=== PATIENT | female | born 1955 | race Hispanic/Latino ===

== ENCOUNTER 2016-12-01 06:17 | Inpatient (IN) | payer OTHER ==
[2016-12-01] MEDS ORDERED: Albuterol-Ipratrop 3 mg / 0.5 (3 ml) UD ONE ×2 (06:21→08:29)
--- NOTE | 2016-12-01 06:46 | C.PDOC ---
History Of Present Illness <Carlos Chawla R - Last Filed: 12/01/16 06:53> <JosephImani - Last Filed: 12/01/16 09:02> Patient is a 61 year old female who presents to the ER with a complaint of shortness of breath for the past 2 days that has worsened today. Patient states she feels chest tightness when taking deep breaths. Denies any nausea, vomiting , or diarrhea. (ChawlaCarlos R) History Per: Patient History/Exam Limitations: no limitations Onset/Duration Of Symptoms: Days (2) Current Symptoms Are (Timing): Still Present Quality: Tightness (In chest when taking deep breaths) Associated Symptoms: denies: Fever, Chills <Carlos Chawla - Last Filed: 12/01/16 06:53> <Imani Ruiz - Last Filed: 12/01/16 09:02> Chief Complaint (Nursing): Shortness Of Breath Past Medical History Reviewed: Historical Data, Nursing Documentation, Vital Signs - Medical History PMH: Arthritis, COPD, Gastritis, HTN, Hypercholesterolemia, Hypothyroidism, Peripheral Edema Surgical History: Cholecystectomy, Endoscopy, Tonsillectomy Family History: States: Unknown Family Hx - Social History Hx Alcohol Use: No Hx Substance Use: No - Immunization History Hx Tetanus Toxoid Vaccination: No Hx Influenza Vaccination: No Hx Pneumococcal Vaccination: Yes <Carlos Chawla - Last Filed: 12/01/16 06:53> Review Of Systems Constitutional: Negative for: Fever, Chills Cardiovascular: Positive for: Other (Chest tightness with deep breaths) Respiratory: Positive for: Shortness of Breath Gastrointestinal: Negative for: Nausea, Vomiting <Carlos Chawla - Last Filed: 12/01/16 06:53> Physical Exam - Physical Exam Appears: Non-toxic, Other (Moderate dyspnea) Skin: Normal Color, Warm, Dry Head: Atraumatic, Normacephalic Oral Mucosa: Moist Chest: Symmetrical, No Tenderness Cardiovascular: Rhythm Regular, No Murmur Respiratory: Rales (Right lower lung area 1/3. Base of left side) Gastrointestinal/Abdominal: Soft, No Tenderness, Other (Obese) Extremity: Pedal Edema (Bilateral) Neurological/Psych: Oriented x3, Normal Speech, Normal Cognition <Carlos Chawla - Last Filed: 12/01/16 06:53> ED Course And Treatment ECG: Interpreted By Me, Viewed By Me ECG Rhythm: Sinus Rhythm ECG Interpretation: Normal, No Acute Changes Interpretation Of ECG: RSR, normal tracings. Rate From EC O2 Sat by Pulse Oximetry: 99 Pulse Ox Interpretation: Normal Progress Note: Blood work, EKG, CXR and vapotherm treatment ordered. <Carlos Chawla - Last Filed: 12/01/16 06:53> - Laboratory Results Result Diagrams: 12/01/16 07:00 12/01/16 07:00 <Imani Ruiz - Last Filed: 12/01/16 09:02> Disposition - Disposition Disposition Time: 07:00 - POA Present On Arrival: None <Carlos Chawla - Last Filed: 12/01/16 06:53> Discussed With : Lionel Hayden Counseled Patient/Family Regarding: Studies Performed, Diagnosis <Imani Ruiz - Last Filed: 12/01/16 09:02> - Disposition Disposition: HOSPITALIZED Condition: STABLE - Clinical Impression Clinical Impression: Dyspnea, CHF (congestive heart failure), Edema, Chest pain, Reactive airway disease - Scribe Statement The provider has reviewed the documentation as recorded by the Scribe <Carlos Chawla - Last Filed: 12/01/16 06:53> <Imani Ruiz - Last Filed: 12/01/16 09:02> - Scribe Statement Iain Austin All medical record entries made by the Scribe were at my direction and personally dictated by me. I have reviewed the chart and agree that the record accurately reflects my personal performance of the history, physical exam, medical decision making, and the department course for this patient. I have also personally directed, reviewed, and agree with the discharge instructions and disposition. (Carlos Chawla) Addendum <Carlos Chawla - Last Filed: 12/01/16 06:53> <Imani Ruiz - Last Filed: 12/01/16 09:02> Addendum: 12/01/16 08:56 patient with SOB, obesity endorsed to me by Dr. Chawla at the end of his shift. SOB X 1 week. Feels like she is gasping for air, her chest feels tight , her throat feels tight. Plan albuterol, SoluMedrol, Benadryl. Obs Possible reactive airway vs allergy. (Imani Ruiz) Decision To Admit <Carlos Chawla - Last Filed: 12/01/16 06:53> - Pt Status Changed To: Hospital Disposition Of: Observation - . Bed Request Type: Telemetry Admitting Physician: Lionel Hayden <Imani Ruiz - Last Filed: 12/01/16 09:02> - . Patient Diagnosis: Dyspnea, CHF (congestive heart failure), Edema, Chest pain, Reactive airway disease
--- NOTE | 2016-12-01 06:49 | C.PDOC ---
Chief Complaint (Nursing): Shortness Of Breath Past Medical History Vital Signs: Last Vital Signs Temp 99.1 F 12/01/16 06:27 Pulse 82 12/01/16 06:27 Resp 28 H 12/01/16 06:27 BP 191/87 H 12/01/16 06:27 Pulse Ox 99 12/01/16 06:27 - Medical History PMH: Arthritis, COPD, Gastritis, HTN, Hypercholesterolemia, Hypothyroidism, Peripheral Edema Denies: Chronic Kidney Disease Surgical History: Cholecystectomy, Endoscopy, Tonsillectomy - [facility] Procedures INSERTION OF INFUSION DEV INTO SUP VENA CAVA, PERC APPROACH (05/11/16) Family History: States: Unknown Family Hx - Social History Hx Alcohol Use: No Hx Substance Use: No - Immunization History Hx Tetanus Toxoid Vaccination: No Hx Influenza Vaccination: No Hx Pneumococcal Vaccination: Yes ED Course And Treatment O2 Sat by Pulse Oximetry: 99 Disposition - Disposition Disposition: HOSPITALIZED Condition: STABLE - POA Present On Arrival: None - Clinical Impression Clinical Impression: Dyspnea, CHF (congestive heart failure), Edema
[2016-12-01 07:05] LABS: BASO % 0.9 % (0.0-2.0); EOS # 0.2 K/uL (0.0-0.7); EOS % 4.4 % (0.0-4.0); HEMATOCRIT 33.9 % (34.0-47.0); LYMPH # 1.3 K/uL (1.0-4.3); LYMPH % 27.5 % (20.0-40.0); MEAN CELL VOLUME 88.8 fL (81.0-99.0); MEAN CORPUSCULAR HEMOGLOBIN 28.6 pg (27.0-31.0); MEAN CORPUSCULAR HGB CONC 32.2 g/dL (33.0-37.0); MEAN PLATELET VOLUME 7.9 fL (7.2-11.7); MONO # 0.6 K/uL (0.0-0.8); RED CELL DISTRIBUTION WIDTH 14.6 % (11.5-14.5); WHITE BLOOD COUNT 4.7 K/uL (4.8-10.8)
[2016-12-01 07:27] LABS: CHLORIDE 109 mmol/L (98-107); POTASSIUM 3.6 mmol/L (3.6-5.2); SODIUM 146 mmol/L (132-148)
[2016-12-01 07:30] LABS: ALB/GLOB RATIO 1.4 (1.0-2.1); ALKALINE PHOSPHATASE 59 U/L (38-126); ALT/SGPT 17 U/L (9-52); AST/SGOT 20 U/L (14-36); BLOOD UREA NITROGEN 11 mg/dL (7-17); CARBON DIOXIDE 23 mmol/L (22-30); GFR AFRICAN-AMERICAN > 60; GLUCOSE,RANDOM 104 mg/dL (65-105); TOTAL PROTEIN 6.5 g/dL (6.3-8.3)
[2016-12-01 07:31] LABS: CALCIUM 8.5 mg/dl (8.6-10.4)
[2016-12-01] MEDS ORDERED: Albuterol 0.083% Inhal Sol (2.5 mg/3 mL) UD IH STA (07:48)
[2016-12-01] MEDS ORDERED: DiphenhydrAMINE 50 mg/ml Inj IVP STA (07:48)
[2016-12-01 08:16] LABS: ABG ALLEN TEST POS; ABG MECHANICAL RATE 20; ARTERIAL BLOOD HGB O2 SAT 96.8 % (95.0-98.0); CARBOXYHEMOGLOBIN 0.8 % (0.5-1.5); DRAW SITE LRA; HHB 2.2 % (0.0-5.0); METHEMOGLOBIN 0.2 % (0.0-3.0)
--- NOTE | 2016-12-01 08:20 | RAD ---
PROCEDURE: CHEST RADIOGRAPH, 1 VIEW HISTORY: SOB COMPARISON: 05/12/2016 FINDINGS: LUNGS: Examination limited due to patient body habitus. No infiltrate. PLEURA: No pneumothorax or pleural fluid seen. CARDIOVASCULAR: Normal. OSSEOUS STRUCTURES: No significant abnormalities. VISUALIZED UPPER ABDOMEN: Normal. OTHER FINDINGS: None. IMPRESSION: No active disease.
[2016-12-01] MEDS ORDERED: DiphenhydrAMINE 50 mg/ml Inj ONE (08:29)
[2016-12-01] MEDS ORDERED: Albuterol 0.083% Inhal Sol (2.5 mg/3 mL) UD ONE (08:37)
[2016-12-01] MEDS ORDERED: Iodixanol 320 MG/ML 100 ML BOTTLE IV ONE (11:50)
--- NOTE | 2016-12-01 12:16 | RAD ---
HISTORY: sob COMPARISON: Comparison is made to the previous study dated 12/01/2016 TECHNIQUE: Chest PA and lateral FINDINGS: LUNGS: [id number] pulmonary vascular congestion. PLEURA: Blunting of the right costophrenic angle could be due to small pleural effusion. CARDIOVASCULAR: The cardiac silhouette is mildly enlarged. OSSEOUS STRUCTURES: No significant abnormalities. VISUALIZED UPPER ABDOMEN: Normal. OTHER FINDINGS: None. IMPRESSION: [id number] pulmonary vascular congestion. Suspicious for small right pleural effusion.
--- NOTE | 2016-12-01 13:00 | CT ---
PROCEDURE: CT Chest with contrast (Pulmonary Angiogram) HISTORY: shortness of breath, elevated d-dimer COMPARISON: None available. TECHNIQUE: Axial computed tomography images were obtained of the chest in the pulmonary arterial phase of enhancement. Coronal and sagittal reformatted images were created and reviewed. Intravenous contrast dose: 100 mL Visipaque 320 Radiation dose: Total exam DLP = 557.49 mGy-cm. This CT exam was performed using one or more of the following dose reduction techniques: Automated exposure control, adjustment of the mA and/or kV according to patient size, and/or use of iterative reconstruction technique. FINDINGS: PULMONARY ARTERIES: Examination is somewhat limited due to patient body habitus. There is suboptimal opacification of the pulmonary arteries for this examination. Nevertheless, there is no evidence of pulmonary arterial filling defect in the main, lobar and segmental branches. Subsegmental branches are suboptimally evaluated. AORTA: No acute findings. No thoracic aortic aneurysm. LUNGS: No infiltrate. No pulmonary mass. Very small right pleural effusion with minimal compressive atelectasis of right lower lobe. PLEURAL SPACES: Very small right pleural effusion. No left pleural effusion. No pneumothorax. HEART: Unremarkable. No cardiomegaly. No significant pericardial effusion. LYMPH NODES: There is mild mediastinal and bilateral hilar lymphadenopathy with few minimally enlarged nodes. This is nonspecific. BONES, CHEST WALL: Unremarkable. No fracture or destructive lesion OTHER FINDINGS: Unremarkable. IMPRESSION: No evidence of pulmonary embolism. Examination limited for evaluation of subsegmental pulmonary artery branches. No evidence of right ventricular strain. Very small right pleural effusion. Mild mediastinal and bilateral hilar lymphadenopathy, nonspecific.
[2016-12-01] MEDS: MethylPREDNISolone 40 mg Vial IVP SCH ×2 (14:03→21:52)
[2016-12-01] MEDS: Albuterol-Ipratrop 3 mg / 0.5 (3 ml) UD INH SCH ×2 (14:03→19:12)
[2016-12-01] MEDS: Hydrocortisone 2.5% Rectal Cream(30 gm) PR SCH (18:04)
--- NOTE | 2016-12-01 19:23 | CP.PCM.HP ---
<Rubi Mcghee - Last Filed: 12/01/16 19:08> History of Present Illness - History of Present Illness History of Present Illness: CC: "Shortness of Breath" HPI: Patient is a 61 year old female with medical history significant for COPD, hypertension, hyperlipidemia, hypothyroidism, gastritis, uterine cancer s/ p mass removal and osteoarthritis who presents to the emergency department for acute shortness of breath x 1 week. Patient reports she typically uses Ventolin inhaler every 4 hours as needed but recently inhaler has not been providing relief of symptoms. She admits to waking in the middle of the night with shortness of breath and wheezing. Patient states she ambulates and is active frequently despite increased pain to her right lower extremity and swelling. Patient reports pain and swelling to bilateral extremities has been present for many years. She denies history of DVT. Patient also denies cough, mucous production, and recent travel/surgeries. She notes her has been sick with a cold and notes subjective fever and diaphoresis two days ago. She is afebrile today. Patient denies chest pain and palpitations but describes chest tightness. She also reports episodes of diarrhea two days ago which has since resolved. Patient denies blood in stools. She also denies urinary symptoms including dysuria, increased frequency or urgency. PMD: Dr. Drake PMH: see above Allergies: tetracycline - anaphylaxis Surgeries: Cholecystectomy, Endoscopy, Tonsillectomy, Uterine mass removal Family History: Father - from CVA in 60s, Mother - hypertension Social: Former smoker, 35 year pack history. Denies alcohol and illicit drug use. Present on Admission - Present on Admission Any Indicators Present on Admission: No History of DVT/PE: No History of Uncontrolled Diabetes: No Urinary Catheter: No Decubitus Ulcer Present: No Review of Systems - Constitutional Constitutional: Fever. absent: Chills, Headache, Lethargy, Weight Loss, Weakness - EENT Eyes: absent: Blurred Vision, Change in Vision Ears: absent: Decreased Hearing, Disequilibrium, Dizziness Nose/Mouth/Throat: absent: Nasal Congestion, Nasal Discharge - Cardiovascular Cardiovascular: Dyspnea, Leg Edema. absent: Chest Pain, Chest Pain with Activity, Pain Radiating to Arm/Neck/Jaw, Lightheadedness, Palpitations, Pedal Edema, Syncope Additional comments: chest tightness - Respiratory Respiratory: Dyspnea, Wheezing. absent: Cough, Hemoptysis, Pain on Inspiration , Chest Congestion, Excessive Mucous Production - Gastrointestinal Gastrointestinal: Diarrhea, Heartburn. absent: Abdominal Pain, Constipation, Cramping, Hematochezia, Melena, Nausea, Vomiting - Genitourinary Genitourinary: absent: Difficulty Urinating, Dysuria, Hematuria, Urinary Frequency - Reproductive: Female Additional comments: history of uterine cancer - Musculoskeletal Musculoskeletal: Arthralgias, Joint Swelling. absent: Numbness, Tingling - Integumentary Integumentary: absent: New Lesions, Rash - Neurological Neurological: absent: Disequilibrium, Dizziness, Numbness, Headaches, Weakness - Psychiatric Psychiatric: absent: Anxiety, Depression Past Patient History - Infectious Disease Hx of Infectious Diseases: None - Past Medical History & Family History Past Medical History?: Yes - Past Social History Smoking Status: Former Smoker - CARDIAC Hx Hypercholesterolemia: Yes Hx Hypertension: Yes Hx Peripheral Edema: Yes - PULMONARY Hx Chronic Obstructive Pulmonary Disease (COPD): Yes - NEUROLOGICAL Hx Neurological Disorder: Yes HX Cerebrovascular Accident: Yes - HEENT Hx HEENT Problems: Yes (USES GLASSES FOR READING) - RENAL Hx Chronic Kidney Disease: No - ENDOCRINE/METABOLIC Hx Hypothyroidism: Yes - HEMATOLOGICAL/ONCOLOGICAL Hx Blood Disorders: Yes Hx Cancer: Yes (Uterine) - INTEGUMENTARY Hx Dermatological Problems: No - MUSCULOSKELETAL/RHEUMATOLOGICAL Hx Arthritis: Yes Hx Falls: Yes (No falls for over 1 year. uses walker) - GASTROINTESTINAL Hx Gastritis: Yes Hx Hemorrhoids: Yes - GENITOURINARY/GYNECOLOGICAL Hx Genitourinary Disorders: Yes Hx Uterine Cancer: Yes - PSYCHIATRIC Hx Substance Use: No - SURGICAL HISTORY Hx Cholecystectomy: Yes Hx Tonsillectomy: Yes - ANESTHESIA Hx Anesthesia: Yes Hx Anesthesia Reactions: No Hx Malignant Hyperthermia: No Meds Allergies/Adverse Reactions: Allergies Allergy/AdvReac Type Severity Reaction Status Date / Time tetracycline Allergy Severe SWELLING Verified 12/01/16 06:26 Physical Exam - Constitutional Appears: Non-toxic, No Acute Distress Additional comments: obese - Head Exam Head Exam: ATRAUMATIC, NORMAL INSPECTION, NORMOCEPHALIC - Eye Exam Eye Exam: EOMI, Normal appearance, PERRL - ENT Exam ENT Exam: Mucous Membranes Moist - Neck Exam Neck exam: Positive for: Normal Inspection. Negative for: Lymphadenopathy, Thyromegaly - Respiratory Exam Respiratory Exam: Wheezes. absent: Rales, Rhonchi - Cardiovascular Exam Cardiovascular Exam: +S1, +S2. absent: Bradycardia, Tachycardia - GI/Abdominal Exam GI & Abdominal Exam: Normal Bowel Sounds, Soft. absent: Distended, Firm - Extremities Exam Additional comments: right lower extremity swelling > than left lower extremity pain to palpation of medial aspect of right knee - Neurological Exam Neurological exam: Alert, CN II-XII Intact, Oriented x3 - Psychiatric Exam Psychiatric exam: Normal Affect, Normal Mood - Skin Skin Exam: Intact, Normal Color, Warm Results - Vital Signs Recent Vital Signs: Last Vital Signs Temp 97.9 F 12/01/16 15:16 Pulse 108 H 12/01/16 15:16 Resp 22 12/01/16 15:16 BP 186/77 H 12/01/16 18:03 Pulse Ox 94 L 12/01/16 15:16 - Labs Result Diagrams: 12/01/16 07:00 12/01/16 07:00 Assessment & Plan - Assessment and Plan (Free Text) Assessment: Shortness of Breath History of COPD CXR: Mild to moderate pulmonary vascular congestion. Suspicious for small right pleural effusion. No leukocytosis, afebrile D-dimer: 271 ABG obtained in ED: pCO2 35, pO2 104, HCO3 24.3, pH 7.43, mechanical rate 20 and FiO2 50% Duplex Scan of Lower Extremity Artery: Negative f/u Venous Duplex Scan of Lower Extremities CTA PE Study: No evidence of PE. Exam limited for evaluation of subsegmental pulmonary artery branches. No evidence of right ventricular strain. Very small right pleural effusion. Mild mediastinal and bilateral hilar lymphadenopathy, nonspecific. 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 Osteoarthritis Started on Celecoxib 100 mg po BID for pain Hypertension Patient continues on home medications: Metoprolol 25 mg po BID Hydralazine 25 mg po TID Aspirin 81 mg po daily Monitor Hyperlipidemia follow-up lipid panel Started on Rosuvastatin 2.5 mg po HS History of Gastritis Continue on home medication Pantoprazole 40 mg po daily History of Hypothyroidism f/u TSH and free T4 Continue on home medication Synthroid 150 mcg po daily Pancytopenia WBC 4.7, Hemoglobin 10.9, Hematocrit 33.9 f/u CBC Prophylaxis: SCD Lovenox 40 mg SC daily - Date & Time Date: 12/01/16 Time: 19:49 <JackelynLionel M - Last Filed: 12/02/16 08:40> Results - Vital Signs Recent Vital Signs: Last Vital Signs Temp 98.1 F 12/02/16 04:13 Pulse 86 12/02/16 04:13 Resp 20 12/02/16 04:13 BP 172/67 H 12/02/16 04:13 Pulse Ox 96 12/02/16 04:13 - Labs Result Diagrams: 12/02/16 06:50 12/02/16 06:50 Labs: Laboratory Results - last 24 hr 12/02/16 12/02/16 12/02/16 06:03 06:50 06:50 WBC 9.1 D RBC 3.70 L Hgb 10.7 L Hct 32.6 L MCV 88.0 MCH 28.9 MCHC 32.9 L RDW 14.3 Plt Count 227 MPV 8.2 Neut % (Auto) 89.4 H Lymph % (Auto) 8.3 L Holt % (Auto) 2.2 Eos % (Auto) 0.0 Baso % (Auto) 0.1 Neut # 8.1 H Lymph # 0.8 L Holt # 0.2 Eos # 0.0 Baso # 0.0 PT 11.6 INR 1.0 APTT 24 Sodium Potassium Chloride Carbon Dioxide Anion Gap BUN Creatinine Est GFR ( Amer) Est GFR (Non-Af Amer) POC Glucose (mg/dL) 195 H Random Glucose Calcium Magnesium Total Bilirubin AST ALT Alkaline Phosphatase Total Protein Albumin Globulin Albumin/Globulin Ratio Triglycerides Cholesterol LDL Cholesterol Direct HDL Cholesterol Free T4 12/02/16 12/02/16 06:50 06:50 WBC RBC Hgb Hct MCV MCH MCHC RDW Plt Count MPV Neut % (Auto) Lymph % (Auto) Holt % (Auto) Eos % (Auto) Baso % (Auto) Neut # Lymph # Holt # Eos # Baso # PT INR APTT Sodium 142 Potassium 3.3 L Chloride 107 Carbon Dioxide 21 L Anion Gap 17 BUN 15 Creatinine 0.9 Est GFR ( Amer) > 60 Est GFR (Non-Af Amer) > 60 POC Glucose (mg/dL) Random Glucose 164 H Calcium 8.8 Magnesium 2.1 Total Bilirubin 0.7 AST 14 D ALT 17 Alkaline Phosphatase 55 Total Protein 6.7 Albumin 3.9 Globulin 2.8 Albumin/Globulin Ratio 1.4 Triglycerides 54 D Cholesterol 129 LDL Cholesterol Direct 69 HDL Cholesterol 46 Free T4 1.63 Attending/Attestation - Attestation I have personally seen and examined this patient.: Yes I have fully participated in the care of the patient.: Yes I have reviewed all pertinent clinical information: Yes Notes (Text): 12/02/16 08:38 Patient was seen and examined at bedside with the resident the time of admission We will start the patient on treatment for COPD exacerbation Rule out pulmonary embolism and DVT I discussed the plan of care with the resident and I agree with the above history and physical and assessment/plan but the resident.
[2016-12-01] MEDS: POLYETHYLENE GLYCOL 3350 17 GM/Dose PACKET PO SCH (21:52)
[2016-12-01] MEDS: Rosuvastatin Calcium 2.5 mg Tab PO SCH (21:52)
[2016-12-02 00:45] VITALS: RESP 20
[2016-12-02] MEDS: Albuterol-Ipratrop 3 mg / 0.5 (3 ml) UD INH SCH ×4 (01:24→19:16)
[2016-12-02] MEDS: MethylPREDNISolone 40 mg Vial IVP SCH ×3 (05:11→21:11)
[2016-12-02] MEDS ORDERED: Levothyroxine 150 MCG TAB PO SCH (06:30)
[2016-12-02 07:26] LABS: BASO % 0.1 % (0.0-2.0); HEMATOCRIT 32.6 % (34.0-47.0); LYMPH # 0.8 K/uL (1.0-4.3); LYMPH % 8.3 % (20.0-40.0); MEAN CORPUSCULAR HEMOGLOBIN 28.9 pg (27.0-31.0); MEAN CORPUSCULAR HGB CONC 32.9 g/dL (33.0-37.0); MEAN PLATELET VOLUME 8.2 fL (7.2-11.7); MONO # 0.2 K/uL (0.0-0.8); MONO % 2.2 % (0.0-10.0); PLATELET COUNT 227 K/uL (130-400); RED CELL DISTRIBUTION WIDTH 14.3 % (11.5-14.5)
[2016-12-02 07:30] LABS: WHITE BLOOD COUNT 9.1 K/uL (4.8-10.8)
[2016-12-02 07:36] LABS: CHLORIDE 107 mmol/L (98-107)
[2016-12-02 07:37] LABS: POTASSIUM 3.3 mmol/L (3.6-5.2); SODIUM 142 mmol/L (132-148)
[2016-12-02 07:38] LABS: CHOLESTEROL 129 mg/dL (0-199)
[2016-12-02 07:39] LABS: ALB/GLOB RATIO 1.4 (1.0-2.1); ALKALINE PHOSPHATASE 55 U/L (38-126); ALT/SGPT 17 U/L (9-52); AST/SGOT 14 U/L (14-36); BILIRUBIN,TOTAL 0.7 mg/dL (0.2-1.3); BLOOD UREA NITROGEN 15 mg/dL (7-17); CALCIUM 8.8 mg/dl (8.6-10.4); CARBON DIOXIDE 21 mmol/L (22-30); GFR AFRICAN-AMERICAN > 60; GLUCOSE,RANDOM 164 mg/dL (65-105); TOTAL PROTEIN 6.7 g/dL (6.3-8.3)
[2016-12-02 07:40] LABS: MAGNESIUM 2.1 mg/dL (1.6-2.3)
[2016-12-02 08:58] LABS: THYROID STIMULATING HORMONE 0.02 mIU/L (0.46-4.68)
--- NOTE | 2016-12-02 09:09 | CP.PCM.PN ---
<Rubi Mcghee - Last Filed: 12/02/16 13:21> Subjective - Date & Time of Evaluation Date of Evaluation: 12/02/16 Time of Evaluation: 09:06 - Subjective Subjective: Patient seen and examined at bedside. Patient states she did not sleep well last night and was restless. She notes restlessness for one week. Patient reports breathing to be improved; however, she reports shortness of breath after ambulation. Patient denies further episodes of diarrhea. She reports pain to her bilaterally lower extremities and swelling, which has been present for some time. Objective - Vital Signs/Intake and Output Vital Signs (last 24 hours): Temp Pulse Resp BP Pulse Ox 97.5 F L 88 20 160/80 H 96 12/02/16 07:05 12/02/16 07:05 12/02/16 07:05 12/02/16 07:05 12/02/16 07:05 Intake and Output: 12/02/16 12/02/16 06:59 18:59 Intake Total 20 Balance 20 - Medications Medications: Current Medications Albuterol/Ipratropium (Duoneb 3 Mg/0.5 Mg (3 Ml) Ud) 3 ml INH RQ6 [facility] Last Admin: 12/02/16 08:22 Dose: Not Given Aspirin (Aspirin Chewable) 81 mg PO DAILY [facility] Last Admin: 12/01/16 10:43 Dose: 81 mg Budesonide (Pulmicort Respules) 0.25 mg INH RQ12 [facility] Celecoxib (Celebrex) 100 mg PO BID [facility] Last Admin: 12/01/16 18:03 Dose: 100 mg Enoxaparin Sodium (Lovenox) 40 mg SC DAILY [facility] Ergocalciferol (Drisdol 50,000 Intl Units Cap) 1 cap PO Q7D [facility] Hydralazine HCl (Apresoline) 25 mg PO TID [facility] Last Admin: 12/01/16 18:03 Dose: 25 mg Hydrocortisone (Anusol-Hc) 0 gm MI BID [facility] Last Admin: 12/01/16 18:04 Dose: 1 applic Levothyroxine Sodium (Synthroid) 150 mcg PO DAILY@0630 [facility] Last Admin: 12/02/16 06:13 Dose: 150 mcg Methylprednisolone (Solu-Medrol) 40 mg IVP Q8H [facility] Last Admin: 12/02/16 05:11 Dose: 40 mg Metoprolol Tartrate (Lopressor) 25 mg PO BID [facility] Last Admin: 12/01/16 18:03 Dose: 25 mg Montelukast Sodium (Singulair) 10 mg PO [facility] Last Admin: 12/01/16 21:52 Dose: 10 mg Pantoprazole Sodium (Protonix Ec Tab) 40 mg PO DAILY [facility] Polyethylene Glycol (Miralax) 17 gm PO [facility] Last Admin: 12/01/16 21:52 Dose: 17 gm Rosuvastatin Calcium (Crestor) 2.5 mg PO [facility] Last Admin: 12/01/16 21:52 Dose: 2.5 mg - Labs Labs: 12/02/16 06:50 12/02/16 06:50 PT 11.6 SECONDS (9.7-12.2) 12/02/16 06:50 INR 1.0 12/02/16 06:50 APTT 24 SECONDS (21-34) 12/02/16 06:50 - Constitutional Appears: Non-toxic, No Acute Distress - Head Exam Head Exam: ATRAUMATIC, NORMAL INSPECTION, NORMOCEPHALIC - Eye Exam Eye Exam: EOMI, PERRL - ENT Exam ENT Exam: Mucous Membranes Moist - Neck Exam Neck Exam: Normal Inspection - Respiratory Exam Respiratory Exam: Clear to Ausculation Bilateral, NORMAL BREATHING PATTERN. absent: Rales, Rhonchi, Wheezes - Cardiovascular Exam Cardiovascular Exam: +S1, +S2. absent: Tachycardia - GI/Abdominal Exam GI & Abdominal Exam: Soft, Normal Bowel Sounds. absent: Firm, Hernia - Extremities Exam Extremities Exam: Joint Swelling, Tenderness. absent: Pedal Edema Additional comments: bilateral lower extremity edema - Back Exam Back Exam: NORMAL INSPECTION - Neurological Exam Neurological Exam: Alert, Awake, Oriented x3 - Psychiatric Exam Psychiatric exam: Normal Affect, Normal Mood - Skin Skin Exam: Intact, Normal Color Assessment and Plan - Assessment and Plan (Free Text) Assessment: Shortness of Breath History of COPD CXR: Mild to moderate pulmonary vascular congestion. Suspicious for small right pleural effusion. No leukocytosis, afebrile D-dimer: 271 ABG obtained in ED: pCO2 35, pO2 104, HCO3 24.3, pH 7.43, mechanical rate 20 and FiO2 50% Duplex Scan of Lower Extremity Artery: Negative CTA PE Study: No evidence of PE. Exam limited for evaluation of subsegmental pulmonary artery branches. No evidence of right ventricular strain. Very small right pleural effusion. Mild mediastinal and bilateral hilar lymphadenopathy, nonspecific. 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 Will adjust/add medications if needed. Hyperlipidemia Continue Rosuvastatin 2.5 mg po HS Elevated Blood Glucose Glucose 164 Start RISS Accuchecks f/u hemoglobin a1c Hypokalemia Potassium 3.3 kdur 40 meq given stat f/u repeat potassium History of Gastritis Continue on home medication Pantoprazole 40 mg po daily History of Hypothyroidism TSH 0.02, free T4 1.63 Decrease Synthroid to 75 mcg from 150 mcg po daily Pancytopenia Resolved WBC 9.1, Low Hemoglobin 10.7, Hematocrit 32.6 Prophylaxis: SCD Lovenox 40 mg SC daily <Lionel Hayden - Last Filed: 12/02/16 15:58> Objective - Vital Signs/Intake and Output Vital Signs (last 24 hours): Temp Pulse Resp BP Pulse Ox 97.5 F L 88 20 194/78 H 96 12/02/16 07:05 12/02/16 07:05 12/02/16 07:05 12/02/16 10:23 12/02/16 07:05 Intake and Output: 12/02/16 12/02/16 06:59 18:59 Intake Total 20 Balance 20 - Medications Medications: Current Medications Albuterol/Ipratropium (Duoneb 3 Mg/0.5 Mg (3 Ml) Ud) 3 ml INH RQ6 [facility] Last Admin: 12/02/16 13:21 Dose: 3 ml Aspirin (Aspirin Chewable) 81 mg PO DAILY [facility] Last Admin: 12/02/16 10:37 Dose: 81 mg Budesonide (Pulmicort Respules) 0.25 mg INH RQ12 [facility] Last Admin: 12/02/16 13:21 Dose: Not Given Celecoxib (Celebrex) 100 mg PO BID [facility] Last Admin: 12/02/16 11:33 Dose: 100 mg Enoxaparin Sodium (Lovenox) 40 mg SC DAILY [facility] Last Admin: 12/02/16 10:29 Dose: 40 mg Ergocalciferol (Drisdol 50,000 Intl Units Cap) 1 cap PO Q7D [facility] Last Admin: 12/02/16 10:17 Dose: 1 cap Hydralazine HCl (Apresoline) 25 mg PO TID [facility] Last Admin: 12/02/16 15:20 Dose: 25 mg Hydrocortisone (Anusol-Hc) 0 gm MI BID [facility] Last Admin: 12/02/16 10:32 Dose: 1 applic Insulin Aspart (Novolog) 0 unit SC TIDAC [facility] PRN Reason: Protocol Last Admin: 12/02/16 12:22 Dose: 1 unit Levothyroxine Sodium (Synthroid) 75 mcg PO DAILY@0630 [facility] Losartan Potassium (Cozaar) 50 mg PO DAILY [facility] Last Admin: 12/02/16 11:32 Dose: 50 mg Methylprednisolone (Solu-Medrol) 40 mg IVP Q8H [facility] Last Admin: 12/02/16 15:00 Dose: 40 mg Metoprolol Tartrate (Lopressor) 25 mg PO BID [facility] Last Admin: 12/02/16 10:23 Dose: 25 mg Montelukast Sodium (Singulair) 10 mg PO HS [facility] Last Admin: 12/01/16 21:52 Dose: 10 mg Pantoprazole Sodium (Protonix Ec Tab) 40 mg PO DAILY [facility] Last Admin: 12/02/16 10:23 Dose: 40 mg Polyethylene Glycol (Miralax) 17 gm PO HS [facility] Last Admin: 12/01/16 21:52 Dose: 17 gm Rosuvastatin Calcium (Crestor) 2.5 mg PO HS [facility] Last Admin: 12/01/16 21:52 Dose: 2.5 mg - Labs Labs: 12/02/16 06:50 12/02/16 06:50 PT 11.6 SECONDS (9.7-12.2) 12/02/16 06:50 INR 1.0 12/02/16 06:50 APTT 24 SECONDS (21-34) 12/02/16 06:50 Attending/Attestation - Attestation I have personally seen and examined this patient.: Yes I have fully participated in the care of the patient.: Yes I have reviewed all pertinent clinical information, including history, physical exam and plan: Yes Notes (Text): 12/02/16 15:55 Patient was seen and examined at bedside. Still complains of shortness of breath. She also complains of for anxiety and irritability. Patient's blood pressure noted to be elevated. We will start the patient on Cozaar 50 mg daily We will continue home medication for blood pressure Patient's TSH is 0.02. We will lower the dose of for Synthroid. CT angiogram of the chest is negative for pulmonary embolism. Dopplers are negative for DVT. Continue current management I discussed the plan of care with the resident and agree with the above history and physical and assessment/plan by the resident.
[2016-12-02 09:37] LABS: NEUTROPHIL 91 % (50-75); TOTAL CELLS COUNTED 100
[2016-12-02] MEDS ORDERED: Ergocalciferol 50,000 Intl Units Cap PO SCH (10:00)
[2016-12-02] MEDS: Pantoprazole 40 mg EC Tab PO SCH (10:23)
[2016-12-02] MEDS: Enoxaparin 40 mg Syringe SC SCH (10:29)
[2016-12-02] MEDS: Hydrocortisone 2.5% Rectal Cream(30 gm) PR SCH ×2 (10:32→17:48)
[2016-12-02] MEDS ORDERED: Potassium Chloride 20 mEq ER Tab PO STA ×2 (10:39→15:03)
[2016-12-02] MEDS: (Novolog) Insulin Aspart, Recombinant 100 u/ml 10 ml vial SC SCH ×2 (12:22→17:49)
[2016-12-02] MEDS: Budesonide 0.25 mg/2 ml Inhal Susp UD INH SCH ×2 (13:21→19:15)
[2016-12-02] MEDS: Rosuvastatin Calcium 2.5 mg Tab PO SCH (21:11)
[2016-12-02] MEDS: POLYETHYLENE GLYCOL 3350 17 GM/Dose PACKET PO SCH (21:11)
[2016-12-03] MEDS: Albuterol-Ipratrop 3 mg / 0.5 (3 ml) UD INH SCH ×4 (02:46→19:25)
[2016-12-03] MEDS: MethylPREDNISolone 40 mg Vial IVP SCH ×3 (06:09→21:33)
[2016-12-03] MEDS: Levothyroxine 75 MCG TAB PO SCH (06:09)
[2016-12-03] MEDS: Budesonide 0.25 mg/2 ml Inhal Susp UD INH SCH ×2 (07:32→19:27)
[2016-12-03] MEDS: (Novolog) Insulin Aspart, Recombinant 100 u/ml 10 ml vial SC SCH ×3 (07:40→18:08)
--- NOTE | 2016-12-03 08:44 | CP.PCM.PN ---
<Rubi Mcghee - Last Filed: 12/03/16 14:57> Subjective - Date & Time of Evaluation Date of Evaluation: 12/03/16 Time of Evaluation: 08:43 - Subjective Subjective: Patient seen and examined at bedside. Patient reports she was able to sleep comfortably overnight. She continues to experience wheezing and congestion but notes improvement from admission. Patient has not had a bowel movement. She denies fever, chills, nausea, vomiting, abdominal pain, and dysuria. Patient reports her pain to bilateral upper and lower extremities and mobility is much improved on Celebrex. Objective - Vital Signs/Intake and Output Vital Signs (last 24 hours): Temp Pulse Resp BP Pulse Ox 97.6 F 63 20 156/82 H 97 12/03/16 08:37 12/03/16 08:37 12/03/16 08:37 12/03/16 08:37 12/03/16 08:37 - Medications Medications: Current Medications Albuterol/Ipratropium (Duoneb 3 Mg/0.5 Mg (3 Ml) Ud) 3 ml INH RQ6 [facility] Last Admin: 12/03/16 07:32 Dose: 3 ml Aspirin (Aspirin Chewable) 81 mg PO DAILY [facility] Last Admin: 12/02/16 10:37 Dose: 81 mg Budesonide (Pulmicort Respules) 0.25 mg INH RQ12 [facility] Last Admin: 12/03/16 07:32 Dose: 0.25 mg Celecoxib (Celebrex) 100 mg PO BID [facility] Last Admin: 12/02/16 17:46 Dose: 100 mg Enoxaparin Sodium (Lovenox) 40 mg SC DAILY [facility] Last Admin: 12/02/16 10:29 Dose: 40 mg Ergocalciferol (Drisdol 50,000 Intl Units Cap) 1 cap PO Q7D [facility] Last Admin: 12/02/16 10:17 Dose: 1 cap Hydralazine HCl (Apresoline) 25 mg PO TID [facility] Last Admin: 12/02/16 17:46 Dose: 25 mg Hydrocortisone (Anusol-Hc) 0 gm [place] BID [facility] Last Admin: 12/02/16 17:48 Dose: 1 applic Insulin Aspart (Novolog) 0 unit SC TIDAC [facility] PRN Reason: Protocol Last Admin: 12/03/16 07:40 Dose: Not Given Levothyroxine Sodium (Synthroid) 75 mcg PO DAILY@0630 [facility] Last Admin: 12/03/16 06:09 Dose: 75 mcg Losartan Potassium (Cozaar) 50 mg PO DAILY [facility] Last Admin: 12/02/16 11:32 Dose: 50 mg Methylprednisolone (Solu-Medrol) 40 mg IVP Q8H [facility] Last Admin: 12/03/16 06:09 Dose: 40 mg Metoprolol Tartrate (Lopressor) 25 mg PO BID [facility] Last Admin: 12/02/16 17:46 Dose: 25 mg Montelukast Sodium (Singulair) 10 mg PO [facility] Last Admin: 12/02/16 21:11 Dose: 10 mg Pantoprazole Sodium (Protonix Ec Tab) 40 mg PO DAILY [facility] Last Admin: 12/02/16 10:23 Dose: 40 mg Polyethylene Glycol (Miralax) 17 gm PO HS [facility] Last Admin: 12/02/16 21:11 Dose: 17 gm Rosuvastatin Calcium (Crestor) 2.5 mg PO [facility] Last Admin: 12/02/16 21:11 Dose: 2.5 mg - Labs Labs: 12/02/16 06:50 12/02/16 06:50 PT 11.6 SECONDS (9.7-12.2) 12/02/16 06:50 INR 1.0 12/02/16 06:50 APTT 24 SECONDS (21-34) 12/02/16 06:50 - Constitutional Appears: Non-toxic, No Acute Distress - Head Exam Head Exam: ATRAUMATIC, NORMAL INSPECTION, NORMOCEPHALIC - Eye Exam Eye Exam: EOMI, Normal appearance, PERRL - ENT Exam ENT Exam: Mucous Membranes Moist - Neck Exam Neck Exam: Normal Inspection - Respiratory Exam Respiratory Exam: Wheezes Additional comments: expiratory wheeze on auscultation - Cardiovascular Exam Cardiovascular Exam: +S1, +S2. absent: Tachycardia - GI/Abdominal Exam GI & Abdominal Exam: Soft, Normal Bowel Sounds. absent: Firm, Rigid - Extremities Exam Extremities Exam: Joint Swelling. absent: Tenderness - Back Exam Back Exam: NORMAL INSPECTION - Neurological Exam Neurological Exam: Alert, Awake, Oriented x3 - Psychiatric Exam Psychiatric exam: Normal Affect, Normal Mood - Skin Skin Exam: Intact, Normal Color Assessment and Plan - Assessment and Plan (Free Text) Assessment: Shortness of Breath History of COPD CXR: Mild to moderate pulmonary vascular congestion. Suspicious for small right pleural effusion. No leukocytosis, afebrile D-dimer: 271 ABG obtained in ED: pCO2 35, pO2 104, HCO3 24.3, pH 7.43, mechanical rate 20 and FiO2 50% Duplex Scan of Lower Extremity Artery: Negative CTA PE Study: No evidence of PE. Exam limited for evaluation of subsegmental pulmonary artery branches. No evidence of right ventricular strain. Very small right pleural effusion. Mild mediastinal and bilateral hilar lymphadenopathy, nonspecific. 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 Will adjust/add medications if needed. Hyperlipidemia Continue Rosuvastatin 2.5 mg po HS Elevated Blood Glucose Glucose 194 Start RISS - medium dose Accuchecks f/u hemoglobin a1c Hypokalemia Resolved Potassium 3.3 kdur 40 meq given stat f/u repeat potassium History of Gastritis Continue on home medication Pantoprazole 40 mg po daily History of Hypothyroidism TSH 0.02, free T4 1.63 Decrease Synthroid to 75 mcg from 150 mcg po daily Pancytopenia Resolved WBC 9.1, Low Hemoglobin 10.7, Hematocrit 32.6 Prophylaxis: SCD Lovenox 40 mg SC daily Dispo: Plan for discharge tomorrow Take off of nasal cannula tomorrow <Lionel Hayden - Last Filed: 12/03/16 16:52> Objective - Vital Signs/Intake and Output Vital Signs (last 24 hours): Temp Pulse Resp BP Pulse Ox 98.1 F 68 20 182/84 H 96 12/03/16 15:00 12/03/16 15:00 12/03/16 15:00 12/03/16 15:00 12/03/16 15:00 - Medications Medications: Current Medications Albuterol/Ipratropium (Duoneb 3 Mg/0.5 Mg (3 Ml) Ud) 3 ml INH RQ6 [facility] Last Admin: 12/03/16 13:03 Dose: 3 ml Aspirin (Aspirin Chewable) 81 mg PO DAILY [facility] Last Admin: 12/03/16 09:58 Dose: 81 mg Budesonide (Pulmicort Respules) 0.25 mg INH RQ12 [facility] Last Admin: 12/03/16 07:32 Dose: 0.25 mg Celecoxib (Celebrex) 100 mg PO BID [facility] Last Admin: 12/03/16 09:58 Dose: 100 mg Enoxaparin Sodium (Lovenox) 40 mg SC DAILY [facility] Last Admin: 12/03/16 09:59 Dose: 40 mg Ergocalciferol (Drisdol 50,000 Intl Units Cap) 1 cap PO Q7D [facility] Last Admin: 12/02/16 10:17 Dose: 1 cap Hydralazine HCl (Apresoline) 25 mg PO TID [facility] Last Admin: 12/03/16 13:30 Dose: 25 mg Hydrocortisone (Anusol-Hc) 0 gm [place] BID [facility] Last Admin: 12/03/16 10:00 Dose: 1 applic Insulin Aspart (Novolog) 0 unit SC TIDAC [facility] PRN Reason: Protocol Levothyroxine Sodium (Synthroid) 75 mcg PO DAILY@0630 [facility] Last Admin: 12/03/16 06:09 Dose: 75 mcg Losartan Potassium (Cozaar) 50 mg PO DAILY [facility] Last Admin: 12/03/16 09:58 Dose: 50 mg Methylprednisolone (Solu-Medrol) 40 mg IVP Q8H [facility] Last Admin: 12/03/16 13:29 Dose: 40 mg Metoprolol Tartrate (Lopressor) 25 mg PO BID [facility] Last Admin: 12/03/16 09:58 Dose: 25 mg Montelukast Sodium (Singulair) 10 mg PO HS [facility] Last Admin: 12/02/16 21:11 Dose: 10 mg Pantoprazole Sodium (Protonix Ec Tab) 40 mg PO DAILY [facility] Last Admin: 12/03/16 09:57 Dose: 40 mg Polyethylene Glycol (Miralax) 17 gm PO HS [facility] Last Admin: 12/02/16 21:11 Dose: 17 gm Promethazine HCl/Dextromethorphan (Phenergan Dm Syrup) 5 ml PO Q6H PRN PRN Reason: Cough Rosuvastatin Calcium (Crestor) 2.5 mg PO HS [facility] Last Admin: 12/02/16 21:11 Dose: 2.5 mg - Labs Labs: PT 11.6 SECONDS (9.7-12.2) 12/02/16 06:50 INR 1.0 12/02/16 06:50 APTT 24 SECONDS (21-34) 12/02/16 06:50 Attending/Attestation - Attestation I have personally seen and examined this patient.: Yes I have fully participated in the care of the patient.: Yes I have reviewed all pertinent clinical information, including history, physical exam and plan: Yes Notes (Text): 12/03/16 16:50 Patient was seen and examined at bedside Patient stated that she is feeling better and that breathing is improved However she still reports shortness of breath on ambulation We will continue IV steroids and nebulizing treatment and oxygen therapy Patient's chest CAT scan was negative for pulmonary embolism. Lower extremity Dopplers were negative for DVT Does of Synthroid was decreased to because of for very low TSH. Patient will need to repeat TSH in a few weeks time Discharge planning likely in the morning if the patient is able to ambulate without oxygen without desaturating Discussed the plan of care with the patient and her at bedside Discussed with the medical assistant float and I agree with the above history and physical and assessment/plan by the resident
[2016-12-03] MEDS: Pantoprazole 40 mg EC Tab PO SCH (09:57)
[2016-12-03] MEDS: Enoxaparin 40 mg Syringe SC SCH (09:59)
[2016-12-03] MEDS: Hydrocortisone 2.5% Rectal Cream(30 gm) PR SCH ×2 (10:00→18:12)
[2016-12-03 11:39] LABS: HEMATOCRIT 33.9 % (34.0-47.0); LYMPH # 0.7 K/uL (1.0-4.3); LYMPH % 5.2 % (20.0-40.0); MEAN CELL VOLUME 88.5 fL (81.0-99.0); MEAN CORPUSCULAR HGB CONC 32.8 g/dL (33.0-37.0); MEAN PLATELET VOLUME 8.6 fL (7.2-11.7); MONO # 0.4 K/uL (0.0-0.8); MONO % 2.9 % (0.0-10.0); PLATELET COUNT 256 K/uL (130-400); RED CELL DISTRIBUTION WIDTH 14.3 % (11.5-14.5); WHITE BLOOD COUNT 13.3 K/uL (4.8-10.8)
[2016-12-03 11:56] LABS: CHLORIDE 107 mmol/L (98-107)
[2016-12-03 11:57] LABS: POTASSIUM 4.1 mmol/L (3.6-5.2); SODIUM 142 mmol/L (132-148)
[2016-12-03 11:59] LABS: ALB/GLOB RATIO 1.3 (1.0-2.1); ALKALINE PHOSPHATASE 53 U/L (38-126); AST/SGOT 19 U/L (14-36); BILIRUBIN,TOTAL 0.7 mg/dL (0.2-1.3); BLOOD UREA NITROGEN 26 mg/dL (7-17); CARBON DIOXIDE 21 mmol/L (22-30); GFR AFRICAN-AMERICAN > 60; TOTAL PROTEIN 7.1 g/dL (6.3-8.3)
[2016-12-03 12:00] LABS: ALT/SGPT 22 U/L (9-52); GLUCOSE,RANDOM 194 mg/dL (65-105); MAGNESIUM 2.3 mg/dL (1.6-2.3)
[2016-12-03 12:21] LABS: NEUTROPHIL 89 % (50-75); TOTAL CELLS COUNTED 100
[2016-12-03 12:22] LABS: LARGE PLATELETS PRESENT
[2016-12-03] MEDS ORDERED: Promethazine DM 6.25 mg-15 mg/5 ml Syrup PO PRN (15:23)
[2016-12-03] MEDS: POLYETHYLENE GLYCOL 3350 17 GM/Dose PACKET PO SCH (21:30)
[2016-12-03] MEDS: Rosuvastatin Calcium 2.5 mg Tab PO SCH (21:30)
[2016-12-04 01:23] VITALS: TEMP 97.4; O2SAT 94
[2016-12-04] MEDS: Albuterol-Ipratrop 3 mg / 0.5 (3 ml) UD INH SCH ×3 (03:06→13:32)
[2016-12-04] MEDS: Levothyroxine 75 MCG TAB PO SCH (06:08)
[2016-12-04] MEDS: MethylPREDNISolone 40 mg Vial IVP SCH (06:09)
[2016-12-04 06:35] LABS: CHLORIDE 104 mmol/L (98-107); POTASSIUM 4.3 mmol/L (3.6-5.2); SODIUM 140 mmol/L (132-148)
[2016-12-04 06:38] LABS: ALB/GLOB RATIO 1.4 (1.0-2.1); CARBON DIOXIDE 25 mmol/L (22-30); GFR AFRICAN-AMERICAN > 60; GLUCOSE,RANDOM 151 mg/dL (65-105); TOTAL PROTEIN 6.5 g/dL (6.3-8.3)
[2016-12-04 06:40] LABS: ALKALINE PHOSPHATASE 46 U/L (38-126); ALT/SGPT 28 U/L (9-52); AST/SGOT 18 U/L (14-36); BILIRUBIN,TOTAL 0.6 mg/dL (0.2-1.3); BLOOD UREA NITROGEN 22 mg/dL (7-17); CALCIUM 8.4 mg/dl (8.6-10.4); MAGNESIUM 2.3 mg/dL (1.6-2.3)
[2016-12-04 06:44] LABS: BASO % 0.1 % (0.0-2.0); HEMATOCRIT 32.4 % (34.0-47.0); LYMPH # 0.8 K/uL (1.0-4.3); LYMPH % 7.8 % (20.0-40.0); MEAN CELL VOLUME 88.4 fL (81.0-99.0); MEAN CORPUSCULAR HGB CONC 32.9 g/dL (33.0-37.0); MEAN PLATELET VOLUME 8.3 fL (7.2-11.7); MONO # 0.4 K/uL (0.0-0.8); MONO % 4.2 % (0.0-10.0); PLATELET COUNT 233 K/uL (130-400); RED CELL DISTRIBUTION WIDTH 14.6 % (11.5-14.5); WHITE BLOOD COUNT 9.8 K/uL (4.8-10.8)
[2016-12-04] MEDS: Budesonide 0.25 mg/2 ml Inhal Susp UD INH SCH (07:57)
[2016-12-04] MEDS: (Novolog) Insulin Aspart, Recombinant 100 u/ml 10 ml vial SC SCH ×2 (08:18→12:28)
[2016-12-04 09:16] VITALS: PULSE 59
[2016-12-04 09:26] LABS: NEUTROPHIL 89 % (50-75); TOTAL CELLS COUNTED 100
[2016-12-04] MEDS: Pantoprazole 40 mg EC Tab PO SCH (09:56)
[2016-12-04] MEDS: Enoxaparin 40 mg Syringe SC SCH (09:57)
[2016-12-04] MEDS: Hydrocortisone 2.5% Rectal Cream(30 gm) PR SCH (09:59)
[2016-12-04 10:07] VITALS: BP 176/73
--- NOTE | 2016-12-04 17:47 | VASCLAB ---
PROCEDURE: Lower Extremity Venous Duplex Exam. HISTORY: Right leg pain, shortness of breath, wheezing PRIORS: None. TECHNIQUE: Bilateral common femoral, femoral, popliteal and posterior tibial, peroneal and great saphenous veins were evaluated. Flow was assessed with color Doppler, compressibility, assessment of phasic flow and augmentation response. Report prepared by LISA Urena FINDINGS: RIGHT: 1. Common Femoral Vein: 1.1. Compressibility - Fully compressible: Thrombus - None : Flow - Phasic: Augmentation -Normal: Reflux - None. 2. Femoral Vein: 2.1. Compressibility - Fully compressible: Thrombus - None : Flow - Phasic: Augmentation -Normal: Reflux - None. 3. Popliteal Vein: 3.1. Compressibility - Fully compressible: Thrombus - None : Flow - Phasic: Augmentation -Normal: Reflux - None. 4. Posterior Tibial Vein: 4.1. Compressibility - Fully compressible: Thrombus - None: Flow - Phasic: Augmentation -Normal: Reflux - None. 5. Peroneal Vein: 5.1. Compressibility - Fully compressible: Thrombus - None: Flow - Phasic: Augmentation -Normal: Reflux - None. 6. Great Saphenous Vein: 6.1. Compressibility - Fully compressible: Thrombus - None: Flow - Phasic: Augmentation - Normal: Reflux - None. LEFT: 1. Common Femoral Vein: 1.1. Compressibility - Fully compressible: Thrombus - None: Flow - Phasic: Augmentation -Normal: Reflux - None. 2. Femoral Vein: 2.1. Compressibility - Fully compressible: Thrombus - None: Flow - Phasic: Augmentation -Normal: Reflux - None. 3. Popliteal Vein: 3.1. Compressibility - Fully compressible: Thrombus - None : Flow - Phasic: Augmentation -Normal: Reflux - None. 4. Posterior Tibial Vein: 4.1. Compressibility - Fully compressible: Thrombus - None: Flow - Phasic: Augmentation -Normal: Reflux - None. 5. Peroneal Vein: 5.1. Compressibility - Fully compressible: Thrombus - None: Flow - Phasic: Augmentation -Normal: Reflux - None. 6. Great Saphenous Vein: 6.1. Compressibility - Fully compressible: Thrombus - None: Flow - Phasic: Augmentation - Normal: Reflux - None. OTHER FINDINGS: Right: None significant. Left: None significant. IMPRESSION: Right: No evidence of deep or superficial vein thrombosis of the right lower extremity. Normal valve function noted of the right side. Left: No evidence of deep or superficial vein thrombosis of the left lower extremity. Normal valve function noted of the left side.
--- NOTE | 2016-12-04 18:59 | CP.PCM.DIS ---
<LitzyRubi - Last Filed: 12/04/16 21:39> Provider - Provider Date of Admission: 12/03/16 12:32 Attending physician: Lionel Hayden MD Primary care physician: Dr. Drake Time Spent in preparation of Discharge (in minutes): 31 Diagnosis - Discharge Diagnosis (1) COPD exacerbation Status: Acute (2) Hypertension Status: Acute (3) Diabetes mellitus Status: Acute (4) Osteoarthritis Status: Acute (5) Hyperlipidemia Status: Acute (6) Gastritis Status: Acute (7) Hypothyroid Status: Acute Hospital Course - Lab Results Lab Results: Most Recent Lab Values WBC 9.8 K/uL (4.8-10.8) 12/04/16 06:22 RBC 3.67 Mil/uL (3.80-5.20) L 12/04/16 06:22 Hgb 10.7 g/dL (11.0-16.0) L 12/04/16 06:22 Hct 32.4 % (34.0-47.0) L 12/04/16 06:22 MCV 88.4 fL (81.0-99.0) 12/04/16 06:22 MCH 29.0 pg (27.0-31.0) 12/04/16 06:22 MCHC 32.9 g/dL (33.0-37.0) L 12/04/16 06:22 RDW 14.6 % (11.5-14.5) H 12/04/16 06:22 Plt Count 233 K/uL (130-400) 12/04/16 06:22 MPV 8.3 fL (7.2-11.7) 12/04/16 06:22 Neut % (Auto) 87.9 % (50.0-75.0) H 12/04/16 06:22 Lymph % (Auto) 7.8 % (20.0-40.0) L 12/04/16 06:22 [place] % (Auto) 4.2 % (0.0-10.0) 12/04/16 06:22 Eos % (Auto) 0.0 % (0.0-4.0) 12/04/16 06:22 Baso % (Auto) 0.1 % (0.0-2.0) 12/04/16 06:22 Neut # 8.6 K/uL (1.8-7.0) H 12/04/16 06:22 Lymph # 0.8 K/uL (1.0-4.3) L 12/04/16 06:22 [place] # 0.4 K/uL (0.0-0.8) 12/04/16 06:22 Eos # 0.0 K/uL (0.0-0.7) 12/04/16 06:22 Baso # 0.0 K/uL (0.0-0.2) 12/04/16 06:22 Neutrophils % (Manual) 89 % (50-75) H 12/04/16 06:22 Lymphocytes % (Manual) 6 % (20-40) L 12/04/16 06:22 Monocytes % (Manual) 5 % (0-10) 12/04/16 06:22 Platelet Estimate Normal (NORMAL) 12/04/16 06:22 Large Platelets Present 12/03/16 11:29 Polychromasia Slight 12/04/16 06:22 Hypochromasia (manual) Slight 12/04/16 06:22 Poikilocytosis (manual Slight 12/04/16 06:22 Anisocytosis (manual) Slight 12/04/16 06:22 PT 11.6 SECONDS (9.7-12.2) 12/02/16 06:50 INR 1.0 12/02/16 06:50 APTT 24 SECONDS (21-34) 12/02/16 06:50 D-Dimer, Quantitative 271 ng/mlDDU (0-243) H 12/01/16 07:00 Puncture Site Lra 12/01/16 08:11 pCO2 35 mm/Hg (35-45) 12/01/16 08:11 pO2 104 mm/Hg (80-100) H 12/01/16 08:11 HCO3 24.3 mmol/L (21-28) 12/01/16 08:11 ABG pH 7.43 (7.35-7.45) 12/01/16 08:11 ABG Total CO2 24.3 mmol/L (22-28) 12/01/16 08:11 ABG O2 Saturation 97.8 % (95-98) 12/01/16 08:11 ABG Base Excess -0.8 mmol/L (-2.0-3.0) 12/01/16 08:11 ABG Hemoglobin 10.1 g/dL (11.7-17.4) L 12/01/16 08:11 ABG Carboxyhemoglobin 0.8 % (0.5-1.5) 12/01/16 08:11 POC ABG HHb (Measured) 2.2 % (0.0-5.0) 12/01/16 08:11 ABG Methemoglobin 0.2 % (0.0-3.0) 12/01/16 08:11 Jose Test Pos 12/01/16 08:11 A-a O2 Difference 209.0 mm/Hg 12/01/16 08:11 Respiratory Index 2.0 12/01/16 08:11 Hgb O2 Saturation 96.8 % (95.0-98.0) 12/01/16 08:11 Mechanical Rate 20 12/01/16 08:11 FiO2 50.0 % 12/01/16 08:11 Sodium 140 mmol/L (132-148) 12/04/16 06:22 Potassium 4.3 mmol/L (3.6-5.2) 12/04/16 06:22 Chloride 104 mmol/L (98-107) 12/04/16 06:22 Carbon Dioxide 25 mmol/L (22-30) 12/04/16 06:22 Anion Gap 16 (10-20) 12/04/16 06:22 BUN 22 mg/dL (7-17) H 12/04/16 06:22 Creatinine 0.9 MG/DL (0.7-1.2) 12/04/16 06:22 Est GFR ( Amer) > 60 12/04/16 06:22 Est GFR (Non-Af Amer) > 60 12/04/16 06:22 POC Glucose (mg/dL) 204 mg/dL (65-110) H 12/04/16 11:38 Random Glucose 151 mg/dL (65-105) H 12/04/16 06:22 Hemoglobin A1c 6.0 % (4.2-6.5) 12/03/16 12:59 Calcium 8.4 mg/dl (8.6-10.4) L 12/04/16 06:22 Magnesium 2.3 mg/dL (1.6-2.3) 12/04/16 06:22 Total Bilirubin 0.6 mg/dL (0.2-1.3) 12/04/16 06:22 AST 18 U/L (14-36) 12/04/16 06:22 ALT 28 U/L (9-52) 12/04/16 06:22 Alkaline Phosphatase 46 U/L (38-126) 12/04/16 06:22 Troponin I < 0.0120 ng/mL (0.00-0.120) 12/01/16 07:00 NT-Pro-B Natriuret Pep 481 pg/mL (0-900) 12/01/16 07:00 Total Protein 6.5 g/dL (6.3-8.3) 12/04/16 06:22 Albumin 3.8 g/dL (3.5-5.0) 12/04/16 06:22 Globulin 2.8 gm/dL (2.2-3.9) 12/04/16 06:22 Albumin/Globulin Ratio 1.4 (1.0-2.1) 12/04/16 06:22 Triglycerides 54 mg/dL (0-149) D 12/02/16 06:50 Cholesterol 129 mg/dL (0-199) 12/02/16 06:50 LDL Cholesterol Direct 69 mg/dL (0-129) 12/02/16 06:50 HDL Cholesterol 46 mg/dL (30-70) 12/02/16 06:50 Free T4 1.63 ng/dL (0.78-2.19) 12/02/16 06:50 TSH 3rd Generation 0.02 mIU/L (0.46-4.68) L 12/02/16 06:50 - Hospital Course Hospital Course: On admission: CC: "Shortness of Breath" HPI: Patient is a 61 year old female with medical history significant for COPD, hypertension, hyperlipidemia, hypothyroidism, gastritis, uterine cancer s/ p mass removal and osteoarthritis who presents to the emergency department for acute shortness of breath x 1 week. Patient reports she typically uses Ventolin inhaler every 4 hours as needed but recently inhaler has not been providing relief of symptoms. She admits to waking in the middle of the night with shortness of breath and wheezing. Patient states she ambulates and is active frequently despite increased pain to her right lower extremity and swelling. Patient reports pain and swelling to bilateral extremities has been present for many years. She denies history of DVT. Patient also denies cough, mucous production, and recent travel/surgeries. She notes her has been sick with a cold and notes subjective fever and diaphoresis two days ago. She is afebrile today. Patient denies chest pain and palpitations but describes chest tightness. She also reports episodes of diarrhea two days ago which has since resolved. Patient denies blood in stools. She also denies urinary symptoms including dysuria, increased frequency or urgency. PMD: Dr. Drake PMH: see above Allergies: tetracycline - anaphylaxis Surgeries: Cholecystectomy, Endoscopy, Tonsillectomy, Uterine mass removal Family History: Father - from CVA in 60s, Mother - hypertension Social: Former smoker, 35 year pack history. Denies alcohol and illicit drug use. On hospital course:During hospital course, the following procedures/imaging were done: Chest x ray (12/01/16): No active disease EKG (12/01/16): Normal sinus rhythm Chest x ray (12/01/16): Mild to moderate pulmonary vascular congestion. Suspicious for small right pleural effusion. CT Chest (12/01/16): No evidence of pulmonary embolism. Examination limited for evaluation of subsegmental pulmonary artery branches. No evidence of right ventricular strain. Very small right pleural effusion. Mild mediastinal and bilateral hilar lymphadenopathy, nonspecific. Duplex scan (12/01/16): No abnormal findings of examined veins right and left lower extremities. Echocardiogram (12/02/16) Shortness of breath Patient has a history of COPD, and x-ray showed mild to moderate pulmonary vascular congestion, suspicious for small right pleural effusion. Upon admission , patient was afebrile and did not have leukocytosis, however her d-dimer was slightly elevated at 271. ABG was obtained in ED and showed pCO2 35, pO2 104, HCO3 24.3, pH 7.43. Both doppler and CTA PE studies were negative for PE. Patient was started on nasal cannula oxygen, Duoneb INH RQ6H, Pulmicort 0.25 mg INH BID, Singulair 10mg PO HS, and SoluMedrol 40mg IVP Q8H. Patient's troponins were negative and EKG was normal sinus rhythm. After 1 day, patient's breathing improved however she reported shortness of breath upon ambulation and bilateral lower extremity pain, which had been present for some time. By day 3, patient still had minor wheezing and congestion but felt significantly improved compared to admission. Osteoarthritis Patient was started on Celecoxib 100mg po BID for pain.Patient's extremity pain improved by day 3. Hypertension Patient was continued on home medications metoprolol 25mg po BID, hydralazine 25mg po TID, and aspirin 81mg po daily. Blood pressure was monitored throughout hospital course: Hyperlipidemia Lipid panel was obtained and total cholesterol was 129, LDL 69, HDL 46, and triglycerides 129. Patient was started on rosuvastatin 2.5mg po HS. Elevated blood glucose On day 2, glucose readings were elevated in the 160s. Patient was started on sliding scale insulin and was monitored with accuchecks. Hemoglobin a1c was 6.0. Hypokalemia On day 2, potassium was low at 3.3. Kdur 40 mEq was given stat. Next day's potassium was in range at 4.1. History of gastritis Patient was continued on home medication pantoprazole 40mg po daily History of hypothyroidism On admission, patient had TSH 0.02 and free T4 1.63. Patient was continued on home medication Synthroid but dose was decreased to 75mcg from 150mcg daily. Pancytopenia On admission, WBC 4.7, Hemoglobin 10.9, Hematocrit 33.9. CBC was monitored and pancytopenia was resolved on day 2 with WBC increasing to 9.1. Prophylactic measures SCD and lovenox 40mg SC daily Please note this is a summary of hospital course. For full details please see patient chart. Discharge Instructions: Patient medically stable for discharge. Patient instructed to take the following medications as prescribed: Aspirin 81 mg tab po daily Pulmicort Respules 0.25 mg inhaled twice daily Singulair 10 mg tab by mouth at night Prednisone taper - 10 mg tab by mouth twice daily for 5 days and 10 mg tab by mouth daily for 5 days Ventolin HFA 90 mcg/actuation 2 puff inhaled every four hours as needed Metformin 500 mg by mouth daily Celebrex 100 mg by mouth twice daily Synthroid 75 mcg tab by mouth each morning Losartan 50 mg tab by mouth daily Hydralazine 25 mg tab by mouth three times daily Metoprolol 12.5 mg tab by mouth twice daily Simvastatin 10 mg tab by mouth daily Patient instructed to follow-up in the [facility] with her primary care physician within one week of discharge. Patient instructed she will need to have her thyroid levels checked as she was started on lower dose of Synthroid. Patient instructed to return to the emergency room if symptoms recur. Patient given detailed instructions at bedside. Patient understands and agrees. - Date & Time of H&P Date of H&P: 12/01/16 Time of H&P: 19:08 Discharge Exam - Head Exam Head Exam: ATRAUMATIC, NORMAL INSPECTION, NORMOCEPHALIC - Eye Exam Eye Exam: EOMI, Normal appearance - ENT Exam ENT Exam: Mucous Membranes Moist - Neck Exam Neck exam: Full Rom, Normal Inspection - Respiratory Exam Respiratory Exam: Clear to PA & Lateral, NORMAL BREATHING PATTERN, UNREMARKABLE - Cardiovascular Exam Cardiovascular Exam: +S1, +S2. absent: Tachycardia - GI/Abdominal Exam GI & Abdominal Exam: Normal Bowel Sounds, Unremarkable - Extremities Exam Extremities exam: full ROM, joint swelling - Back Exam Back exam: absent: CVA tenderness (L), CVA tenderness (R) - Neurological Exam Neurological exam: Alert, Normal Gait, Oriented x3 - Psychiatric Exam Psychiatric exam: Normal Affect, Normal Mood - Skin Skin Exam: Dry, Normal Color, Warm Discharge Plan - Discharge Medications Prescriptions: Albuterol HFA [Ventolin HFA 90 mcg/actuation (8 g)] 2 puff INH Q4 PRN #1 inhaler PRN Reason: Shortness Of Breath Aspirin [Aspirin Chewable] 81 mg PO DAILY #30 Budesonide [Pulmicort Respules] 0.25 mg INH RQ12 #1 inhaler Celecoxib [celeBREX] 100 mg PO BID #60 cap hydrALAZINE [Apresoline] 25 mg PO TID #90 tab Levothyroxine [Synthroid] 75 mcg PO DAILY@0630 #30 tab Losartan [Cozaar] 50 mg PO DAILY #30 tab Metformin HCl [Glucophage] 500 mg PO DAILY #30 tablet Metoprolol Tartrate [Lopressor] 25 mg PO BID #60 Montelukast [Singulair] 10 mg PO HS #30 tab predniSONE [Prednisone] 10 mg PO BID #6 tab predniSONE [Prednisone] 10 mg PO DAILY #3 tab Simvastatin 1 tab PO DAILY #30 - Follow Up Plan Condition: STABLE Disposition: HOME/ ROUTINE Instructions: Metoprolol (By mouth), Levothyroxine (By mouth), Albuterol (By breathing), Prednisone (By mouth), Aspirin (By mouth), Hydralazine (By mouth), Simvastatin (By mouth), Losartan (By mouth), Budesonide (By breathing), Montelukast (By mouth), Celecoxib (By mouth), Heart Failure (DC), Heart Healthy Diet (DC), COPD (Chronic Obstructive Pulmonary Disease) (DC), Hyperlipidemia (DC ) Additional Instructions: Patient medically stable for discharge. Patient instructed to take the following medications as prescribed: Aspirin 81 mg tab po daily Pulmicort Respules 0.25 mg inhaled twice daily Singulair 10 mg tab by mouth at night Prednisone taper - 10 mg tab by mouth twice daily for 3 days (6 tabs) and 10 mg tab by mouth daily for 3 days (3 tabs) Ventolin HFA 90 mcg/actuation 2 puff inhaled every four hours as needed Celebrex 100 mg by mouth twice daily Synthroid 75 mcg tab by mouth each morning Losartan 50 mg tab by mouth daily Hydralazine 25 mg tab by mouth three times daily Metoprolol 12.5 mg tab by mouth twice daily Simvastatin 10 mg tab by mouth daily Vitamin D3 2000 unit capsule by mouth daily Anusol-Hc 30 gm tube apply to rectum twice daily Pantoprazole 40 mg tab by mouth daily Polyethylene Glycol 119 gm powder 17 g by mouth twice daily Patient instructed to follow-up in the [facility] with her primary care physician within one week of discharge. Patient instructed she will need to have her thyroid levels checked as she was started on lower dose of Synthroid. Patient instructed to return to the emergency room if symptoms recur. Patient given detailed instructions at bedside. Patient understands and agrees. Referrals: Magy Drake MD [Staff Provider] - <Anjel Robb H - Last Filed: 12/05/16 17:15> Provider - Provider Date of Admission: 12/03/16 12:32 Attending physician: Lionel Hayden MD Hospital Course - Lab Results Lab Results: Most Recent Lab Values WBC 9.8 K/uL (4.8-10.8) 12/04/16 06:22 RBC 3.67 Mil/uL (3.80-5.20) L 12/04/16 06:22 Hgb 10.7 g/dL (11.0-16.0) L 12/04/16 06:22 Hct 32.4 % (34.0-47.0) L 12/04/16 06:22 MCV 88.4 fL (81.0-99.0) 12/04/16 06:22 MCH 29.0 pg (27.0-31.0) 12/04/16 06:22 MCHC 32.9 g/dL (33.0-37.0) L 12/04/16 06:22 RDW 14.6 % (11.5-14.5) H 12/04/16 06:22 Plt Count 233 K/uL (130-400) 12/04/16 06:22 MPV 8.3 fL (7.2-11.7) 12/04/16 06:22 Neut % (Auto) 87.9 % (50.0-75.0) H 12/04/16 06:22 Lymph % (Auto) 7.8 % (20.0-40.0) L 12/04/16 06:22 [place] % (Auto) 4.2 % (0.0-10.0) 12/04/16 06:22 Eos % (Auto) 0.0 % (0.0-4.0) 12/04/16 06:22 Baso % (Auto) 0.1 % (0.0-2.0) 12/04/16 06:22 Neut # 8.6 K/uL (1.8-7.0) H 12/04/16 06:22 Lymph # 0.8 K/uL (1.0-4.3) L 12/04/16 06:22 [place] # 0.4 K/uL (0.0-0.8) 12/04/16 06:22 Eos # 0.0 K/uL (0.0-0.7) 12/04/16 06:22 Baso # 0.0 K/uL (0.0-0.2) 12/04/16 06:22 Neutrophils % (Manual) 89 % (50-75) H 12/04/16 06:22 Lymphocytes % (Manual) 6 % (20-40) L 12/04/16 06:22 Monocytes % (Manual) 5 % (0-10) 12/04/16 06:22 Platelet Estimate Normal (NORMAL) 12/04/16 06:22 Large Platelets Present 12/03/16 11:29 Polychromasia Slight 12/04/16 06:22 Hypochromasia (manual) Slight 12/04/16 06:22 Poikilocytosis (manual Slight 12/04/16 06:22 Anisocytosis (manual) Slight 12/04/16 06:22 PT 11.6 SECONDS (9.7-12.2) 12/02/16 06:50 INR 1.0 12/02/16 06:50 APTT 24 SECONDS (21-34) 12/02/16 06:50 D-Dimer, Quantitative 271 ng/mlDDU (0-243) H 12/01/16 07:00 Puncture Site Lra 12/01/16 08:11 pCO2 35 mm/Hg (35-45) 12/01/16 08:11 pO2 104 mm/Hg (80-100) H 12/01/16 08:11 HCO3 24.3 mmol/L (21-28) 12/01/16 08:11 ABG pH 7.43 (7.35-7.45) 12/01/16 08:11 ABG Total CO2 24.3 mmol/L (22-28) 12/01/16 08:11 ABG O2 Saturation 97.8 % (95-98) 12/01/16 08:11 ABG Base Excess -0.8 mmol/L (-2.0-3.0) 12/01/16 08:11 ABG Hemoglobin 10.1 g/dL (11.7-17.4) L 12/01/16 08:11 ABG Carboxyhemoglobin 0.8 % (0.5-1.5) 12/01/16 08:11 POC ABG HHb (Measured) 2.2 % (0.0-5.0) 12/01/16 08:11 ABG Methemoglobin 0.2 % (0.0-3.0) 12/01/16 08:11 Jose Test Pos 12/01/16 08:11 A-a O2 Difference 209.0 mm/Hg 12/01/16 08:11 Respiratory Index 2.0 12/01/16 08:11 Hgb O2 Saturation 96.8 % (95.0-98.0) 12/01/16 08:11 Mechanical Rate 20 12/01/16 08:11 FiO2 50.0 % 12/01/16 08:11 Sodium 140 mmol/L (132-148) 12/04/16 06:22 Potassium 4.3 mmol/L (3.6-5.2) 12/04/16 06:22 Chloride 104 mmol/L (98-107) 12/04/16 06:22 Carbon Dioxide 25 mmol/L (22-30) 12/04/16 06:22 Anion Gap 16 (10-20) 12/04/16 06:22 BUN 22 mg/dL (7-17) H 12/04/16 06:22 Creatinine 0.9 MG/DL (0.7-1.2) 12/04/16 06:22 Est GFR ( Amer) > 60 12/04/16 06:22 Est GFR (Non-Af Amer) > 60 12/04/16 06:22 POC Glucose (mg/dL) 204 mg/dL (65-110) H 12/04/16 11:38 Random Glucose 151 mg/dL (65-105) H 12/04/16 06:22 Hemoglobin A1c 6.0 % (4.2-6.5) 12/03/16 12:59 Calcium 8.4 mg/dl (8.6-10.4) L 12/04/16 06:22 Magnesium 2.3 mg/dL (1.6-2.3) 12/04/16 06:22 Total Bilirubin 0.6 mg/dL (0.2-1.3) 12/04/16 06:22 AST 18 U/L (14-36) 12/04/16 06:22 ALT 28 U/L (9-52) 12/04/16 06:22 Alkaline Phosphatase 46 U/L (38-126) 12/04/16 06:22 Troponin I < 0.0120 ng/mL (0.00-0.120) 12/01/16 07:00 NT-Pro-B Natriuret Pep 481 pg/mL (0-900) 12/01/16 07:00 Total Protein 6.5 g/dL (6.3-8.3) 12/04/16 06:22 Albumin 3.8 g/dL (3.5-5.0) 12/04/16 06:22 Globulin 2.8 gm/dL (2.2-3.9) 12/04/16 06:22 Albumin/Globulin Ratio 1.4 (1.0-2.1) 12/04/16 06:22 Triglycerides 54 mg/dL (0-149) D 12/02/16 06:50 Cholesterol 129 mg/dL (0-199) 12/02/16 06:50 LDL Cholesterol Direct 69 mg/dL (0-129) 12/02/16 06:50 HDL Cholesterol 46 mg/dL (30-70) 12/02/16 06:50 Free T4 1.63 ng/dL (0.78-2.19) 12/02/16 06:50 TSH 3rd Generation 0.02 mIU/L (0.46-4.68) L 12/02/16 06:50 Attending/Attestation - Attestation I have personally seen and examined this patient.: Yes I have fully participated in the care of the patient.: Yes I have reviewed all pertinent clinical information, including history, physical exam and plan: Yes Notes (Text): 12/05/16 17:11 Medical attending: Patient was seen and examined by me, agrees the above note by medical technologist chemistry. The patient will be discharged today, we have her walk with us into the hallway and she was able to do so on her own. Nevertheless I counseled her to be very careful when walking around and that she slowly needs to build up her strength over time she's can be going home with Pulmicort to be taken twice a day, I gave specific instructions that she needs to take the Pulmicort even if she feels well. Also Singulair as well as there may be an asthmatic component as well as COPD. Also a tapering dose of prednisone. And she's continued to continue to use her rescue inhaler medications as needed. Again I emphasized the patient that she's got a take things very slowly. As well as take her medications Thank you very much, Anjel Robb
--- NOTE | 2016-12-06 09:09 | CARD ---
APPROVED REPORT EKG Measurement Heart [id number] <Conclusion> Normal sinus rhythm Normal ECG
--- NOTE | 2016-12-08 15:36 | CARD ---
APPROVED REPORT EXAM: Two-dimensional and M-mode echocardiogram with Doppler and color Doppler. Other Information Quality : AverageRhythm : NSR INDICATION Dyspnea SOB M-Mode DIMENSIONS RVDd1.04 (2.1-3.2cm)Left Atrium (MM)4.02 (2.5-4.0cm) IVSd1.20 (0.7-1.1cm)Aortic Root3.13 (2.2-3.7cm) LVDd5.17 (4.0-5.6cm)Aortic Cusp Exc.1.40 (1.5-2.0cm) PWd1.24 (0.7-1.1cm)FS (%) 40 % LVDs3.12 (2.0-3.8cm)LVEF (%)70 (>50%) Mitral Valve MV E Ferwdgrw32.4cm/sMV A Djaqligs882.7cm/sE/A ratio0.9 TDI E/Lateral E'0.0E/Medial E'0.0 Tricuspid Valve TR Peak [id number]/sTR Peak [id number] LEFT VENTRICLE The left ventricle is normal size. There is mild concentric left ventricular hypertrophy. The left ventricular function is normal. The left ventricular ejection fraction is within the normal range. No regional wall motion abnormalities noted. Transmitral Doppler flow pattern is Grade I-abnormal relaxation pattern. No left ventricle thrombus noted on this study. There is no ventricular septal defect visualized. There is no left ventricular aneurysm. There is no mass noted in the left ventricle. RIGHT VENTRICLE The right ventricle is normal size. There is normal right ventricular wall thickness. The right ventricular systolic function is normal. ATRIA The left atrium is mildly dilated. The right atrium size is normal. The interatrial septum is intact with no evidence for an atrial septal defect. AORTIC VALVE The aortic valve is normal in structure and function. No aortic regurgitation is present. There is no aortic valvular stenosis. There is no aortic valvular vegetation. MITRAL VALVE The mitral valve is normal in structure There is no evidence of mitral valve prolapse. There is no mitral valve stenosis. Mitral regurgitation is mild. TRICUSPID VALVE The tricuspid valve is normal in structure There is trace to mild tricuspid regurgitation. There is no tricuspid valve prolapse or vegetation. There is no tricuspid valve stenosis. PULMONIC VALVE The pulmonary valve is normal in structure and function. There is no pulmonic valvular regurgitation. There is no pulmonic valvular stenosis. GREAT VESSELS The aortic root is normal in size. The ascending aorta is normal in size. The pulmonary artery is normal. The IVC is normal in size and collapses >50% with inspiration. PERICARDIAL EFFUSION The pericardium appears normal. There is no pleural effusion. <Conclusion> EF IS 60-65% There is mild concentric left ventricular hypertrophy. Transmitral Doppler flow pattern is Grade I-abnormal relaxation pattern. The left atrium is mildly dilated. Mitral regurgitation is mild. There is trace to mild tricuspid regurgitation.
== END 2016-12-04 15:15 | disposition home or self-care (01) | DRG 88 ==
LOC: C.ER 06:17 → C.6T 09:02 → OBSVTOIN 12-03 12:32
PROVIDERS: ADMIT Internal Medicine; ATTEND Internal Medicine
DX: J44.1 Chronic obstructive pulmonary disease with (acute) exacerbation (principal); D61.818 Other pancytopenia; I50.9 Heart failure, unspecified; E11.65 Type 2 diabetes mellitus with hyperglycemia; I11.0 Hypertensive heart disease with heart failure; E87.6 Hypokalemia; E03.9 Hypothyroidism, unspecified; K29.70 Gastritis, unspecified, without bleeding; M19.90 Unspecified osteoarthritis, unspecified site; E78.5 Hyperlipidemia, unspecified; E78.00 Pure hypercholesterolemia, unspecified; F41.9 Anxiety disorder, unspecified; J45.909 Unspecified asthma, uncomplicated; Z79.82 Long term (current) use of aspirin; Z87.891 Personal history of nicotine dependence; Z79.899 Other long term (current) drug therapy; Z82.3 Family history of stroke; Z82.49 Family history of ischemic heart disease and other diseases of the circulatory system; Z85.42 Personal history of malignant neoplasm of other parts of uterus; Z90.49 Acquired absence of other specified parts of digestive tract

== ENCOUNTER 2018-04-22 07:04 | Day surgery (SDC) | payer OTHER ==
[2018-04-19 08:27] VITALS: BMI 45.6
[2018-04-22] MEDS ORDERED: Lidocaine Hydrochloride 20 ML INJ ONE (10:26)
[2018-04-22] MEDS ORDERED: ceFAZolin 1 gm in NS 2 GM/200 ML BAG IVPB ONE (10:30)
[2018-04-22] MEDS ORDERED: Midazolam 2 MG/2 ML VIAL ONE (10:41)
[2018-04-22] MEDS ORDERED: Propofol 10 mg/ml 1,000 MG/100 ML VIAL ONE (10:49)
[2018-04-22] MEDS: Bupivacaine 0.25% 20 ML INJ IJ ONE ×2 (10:50→13:24)
[2018-04-22] MEDS ORDERED: Propofol 10 mg/ml Inj (20 ML) ONE ×4 (10:57→12:48)
[2018-04-22] MEDS ORDERED: Lidocaine Hydrochloride 5 ML INJ ONE (11:18)
[2018-04-22] MEDS ORDERED: Bacitracin Ointment 30 GM TUBE ONE (13:20)
[2018-04-22] MEDS ORDERED: Bupivacaine 0.25% 20 ML INJ IJ ONE (13:20)
--- NOTE | 2018-04-22 13:34 | PCM.SURG1 ---
Surgeon's Initial Post Op Note - Surgeon's Notes Surgeon: Dr. Bonnie Junior, DPM Senior Courtroom Clerk: Scarlett Mabry, PGY-3, Ac Sam, PGY-2 Type of Anesthesia: IV Sedation, Local Anesthesia Administered By: Dr. Grady MD Pre-Operative Diagnosis: Left foot 1) Hallux valgus deformity 2) Proximal interphalangeal joint hammer toe deformity 3) 2nd metatarsal phalangeal joint subluxation Operative Findings: See dictation. I: 20ml 0.5% Marcaine plain. M: Synthes 2.0 mm screws (x5); 0.045 inch k-wire; 2-0 Vicryl, 4-0 Vicryl; 4-0 monocryl Post-Operative Diagnosis: Left foot: 1)Metatarsus primus varus 2) Hallux valgus deformity 3) Proximal interphalangeal joint hammer toe deformity 4) 2nd metatarsal phalangeal joint subluxation Operation Performed: Left foot: 1) 1st metatarsal osteotomy with fixation. 2) 1st digit phalangeal osteotomy with fixation. 3) Proximal interphalangeal joint arthroplasty with fixation. 4) 2nd metatarsal decompressional osteotomy with fixation. 5) 2nd metatarsal phalangeal joint capsulotomy with stablalization. 6) Flouroscopy Specimen/Specimens Removed: none Estimated Blood Loss: EBL {In ML}: 3 Blood Products Given: N/A Drains Used: No Drains Post-Op Condition: Good Date of Surgery/Procedure: 04/22/18 Time of Surgery/Procedure: 13:38
[2018-04-22] MEDS ORDERED: Lactated Ringer's 1,000 ML IV ONE (13:39)
[2018-04-22] MEDS ORDERED: Oxycodone/Acetaminophen 5/325 mg Tab PO PRN ×2 (13:40)
[2018-04-22] MEDS ORDERED: HYDROmorphone 0.5 mg/0.5 ml ISec IVP PRN (13:43)
[2018-04-22 14:33] VITALS: O2SAT 97
[2018-04-22 15:03] VITALS: BP 159/69; PULSE 64; RESP 17; TEMP 97.6
--- NOTE | 2018-04-26 07:39 | OP ---
PROCEDURE DATE: 04/22/2018 PRIMARY SURGEON: Bonnie Junior DPM ASSISTANTS: Vincenzo Mabry DPM, PGY-3; and Jeevan Sam DPM, PGY-2 ANESTHESIA TYPE: IV sedation with local. PREOPERATIVE DIAGNOSES: 1. Left hallux abductovalgus deformity/bunion deformity. 2. Left foot second digit proximal interphalangeal joint hammertoe contracture. 3. Left foot second metatarsophalangeal joint subluxation. POSTOPERATIVE DIAGNOSES:. 1. Left hallux abductovalgus deformity/bunion deformity. 2. Left foot second digit proximal interphalangeal joint hammertoe contracture. 3. Left foot second metatarsophalangeal joint subluxation. PROCEDURES PERFORMED: 1. Left foot first metatarsal osteotomy with screw fixation. 2. Left foot first digit proximal phalangeal osteotomy with screw fixation. 3. Left foot second digit proximal interphalangeal joint arthroplasty with K-wire fixation. 4. Left foot second metatarsal osteotomy with screw fixation. 5. Left foot second metatarsophalangeal joint capsulotomy. INDICATIONS: The patient is a 62-year-old female with the above-stated diagnosis. The patient has exhausted all conservative treatment options and is now in need of surgical intervention. The patient signed the surgical consent after careful explantation of risks, benefits, complications, and potential alternatives to the proposed surgical procedure. No guarantees were either given nor implied. All the patient's questions were answered to her satisfaction. PREPARATION: The patient was brought to the operating room and placed on the operating room table. The patient then received a well-padded pneumatic tourniquet in a supramalleolar position to the patient's left ankle which was set to 250 mmHg to be inflated once the procedure began. Once the IV sedation was confirmed to have been achieved, the patient's left foot then received a total of mL of a 1:1 mixture of 0.5% Marcaine plain, 1% lidocaine plain in a local block type fashion to the surgical areas. Once local anesthetic was confirmed to have been achieved, the patient's left foot was then prepped and draped in the usual sterile manner. Tourniquet was inflated and the procedure was began. PROCEDURES: 1. Left foot first metatarsal osteotomy with screw fixation. Attention was then directed to the distal aspect of the patient's first metatarsophalangeal joint, where using a #15 blade, approximately 6 cm linear longitudinal incision was made medial and parallel to the tendon of the extensor hallucis longus tendon. This incision was extended down to the subcutaneous tissue layers with care being taken to identify, avoid, and retract all vital neurovascular structures. All bleeders were cauterized and ligated as needed and encountered. At this time, extensor hallucis tendon was retracted medially and sharp release of the extensor hallucis longus at its suspensory fibular sesamoid ligament was performed. This provided a mild correction of hallux abductus valgus deformity at this level. Procedure then continued and attention was redirected to the medial side of the metatarsophalangeal joint where an L-type capsulotomy was performed at the level of the first metatarsophalangeal joint and periosteum was retracted medially and laterally, but fully exposing the head of the first metatarsal into operative view. At this time, joint contour was evaluated and first metatarsophalangeal joint articular surfaces were found to be adequate with no cartilaginous damage or thinning. At this time, hypertrophic dorsomedial eminences were then resected using a sagittal saw and passed through the operative field. Next, at the level of the distal metaphyseal bone, a K-wire was then driven from the medial to lateral side of the first metatarsal to serve as the apex for our offset V-type osteotomy, which was created using sagittal saw, limited from medial to lateral. A longer dorsal shelf was created to accommodate for internal fixation. At this time, capital fragment was extracted and shifted laterally to set along a more corrected anatomic position for the first metatarsal head. At this time, a pair of two 0.045 inch K-wires were then driven from dorsal to plantar to serve as temporary fixation. Position was evaluated under evaluated and found to be adequate. Next, following standard AO principles and technique, a Synthes 2 mm diameter screws were driven in parallel to each other across the osteotomy site. Surgical site was then evaluated and hallux abductus valgus deformity was found to be significantly reduced. All temporary fixations were removed. Surgical sites was then flushed with copious amounts of sterile saline. Attention was directed to the next procedure which utilized and extended current surgical incision site. 2. Left foot proximal phalangeal osteotomy with screw fixation. Attention was then directed to the distal apex of the incision which was extended 2 cm distally, medial and parallel to the extensor hallucis longus tendon. Bleeders were cauterized as needed and encountered. Periosteal dissection was performed medial to the extensor hallucis longus tendon along the first proximal phalanx. Periosteum was then selected medially and laterally, thus fully exposing the proximal half of the first proximal phalanx. At this time, using a sagittal saw, a medially based oblique type osteotomy was created from distal medial to proximal lateral. Bone wedge of 0.5 mm was then excised and passed from the operative lateral with lateral hinge left intact. At this time, wedge was closed down to allow the bone approximation. Lateral hinge remained intact. At this time, a 0.045-inch temporary fixation K-wire was driven perpendicular to the created osteotomy site to serve as temporary fixation. Surgical reduction was found to be adequate under fluoroscopic imaging. At this time, following standard AO principles and technique, a Synthes 2 x 40 mm K-wire was then driven from proximal medial to distal lateral across the osteotomy site to serve as permanent fixation. Fixation was found to be excellent at this time. The temporary fixation K-wire was removed. Surgical site was then flushed with copious amount of sterile saline. All periosteal structures were then reapproximated using a combination of 2-0 and 3-0 Vicryl. Subcutaneous tissues were reapproximated using 4-0 Vicryl. Skin was reapproximated using 4-0 Monocryl in a running subcuticular suture-type fashion. 3. Left foot second digit proximal interphalangeal joint arthroplasty: Attention was then directed to the dorsal aspect of the patient's left second digit when approximately 3 cm longitudinal incision was made overlying the proximal interphalangeal joint using #15 blade. This fixation was extended out to subcutaneous tissue layers with care being taken to identify, avoid, and retract all vital neurovascular structures. All bleeders were cauterized and ligated as needed, and at this time, a transverse tenotomy and capsulotomy was performed at the level of the second proximal interphalangeal joint. The second digit proximal phalanx was then freed with ligamentous and capsularis structures and was fully brought to the operative view. Next, utilizing sagittal saw, the second digit was resected with a larger medial with the head resected and passed from the operative field. Approximation at the level of reduced angulation deformity tend to originate at the level of the proximal phalangeal joint. Adequate digital length remained. Sagittal saw was then flushed with copious amounts of sterile saline. Next, utilizing a 0.045-inch K-wire, was then driven antegrade through the distal tuft to the second digit and then retrograded proximally through the remaining aspect of the proximal phalanx without violating the metatarsophalangeal joint. Stability was assessed at this time and was found to be adequate. with the K-wire cut. Attention was then directed to the proximal apex of the incision, which was to be extended for the subsequent surgical procedure. 4. Second metatarsal Rm osteotomy and procedure. 5. Second metatarsophalangeal joint capsulotomy. Attention was then directed to the dorsal aspect of the second metatarsophalangeal joint, where a medially subluxed second digit, which has been previously overriding lateral first digit prior to was assessed. Subluxation was noted to still be intact. At this time, proximal apex of the previous incision was extended at 3 cm in a curvilinear type fashion using #15 blade overlying the second metatarsophalangeal joint. This incision was extended down to subcutaneous tissue layers with care being taken to identify, avoid, and retract all vital neurovascular structures. All bleeders were cauterized and ligated as needed and encountered. At this time, extensor curiel apparatus was evaluated for the second metatarsophalangeal joint. A transverse capsulotomy was performed through the dorsal aspect of the second metatarsophalangeal joint. Lateral collateral ligaments were left intact for the second metatarsal head. Next, utilizing a McGlamry elevator, second metatarsal was freed from the plantar plate. Next utilizing a sagittal saw, a through and through type osteotomy was created in parallel with the weightbearing surface or in the distal dorsal to plantar proximal. Utilizing pusher, second metatarsal head capital fragment was then retrograded with a secondary parallel cut in line with the first. Second metatarsal capital fragment was then translated dorsally and retrograded proximally to an adequate position evaluated under fluoroscopy to maintain metatarsal parabola. Once adequate position had been found, temporary fixation was achieved across the head. Next, following standard AO principles and technique and using Synthes 2 screw, head of capital fragment was permanently fixated. Temporary fixation K-wire was removed. Surgical site was then flushed with copious amounts of sterile saline. At this time, second digit angulation was assessed, but not found to be fully adequate. It was noted that capsular structures were needed to be approximated with extrinsic FiberWire. At this time, subcutaneous tissues along the full length of the incision and periosteal tissues were reapproximated using 4-0 Vicryl. Subcutaneous tissue was reapproximated using 4-0 Vicryl. Skin was reapproximated using 4-0 Monocryl in a running subcuticular suture type fashion. Extrinsic FiberWire stitches were placed to hold digit in a plantar flexed straightened position. Surgical site was then assessed. The patient then received a total of 50 mL of 0.5% Marcaine plain. All the surgical sites were then dressed with Betadine soaked 4 x 4 gauze, Kerlix, Ashkan, Coban, and JESUS. POSTOPERATIVE CONDITION: The patient tolerated the anesthesia and procedure well and was escorted to the recovery room with vital signs stable and neurovascular status intact to the left lower extremity. The patient had no complaints or complications. The patient will follow up with Dr. Junior in our office on an outpatient basis. Vincenzo Mabry DPM Bonnie Junior DPM
== END 2018-04-22 15:44 | disposition home or self-care (01) ==
LOC: C.SDS 07:04
PROVIDERS: ATTEND Podiatrist Foot & Ankle Surgery
DX: M20.12 Hallux valgus (acquired), left foot (principal); M20.42 Other hammer toe(s) (acquired), left foot
CPT/HCPCS: 28285; 28296; 82948; C1713; J2250; J2704; J3010; J7120

== ENCOUNTER 2018-05-13 13:37 | Emergency (ER) | payer OTHER ==
[2018-05-13 13:37] VITALS: BMI 45.6
[2018-05-13 13:56] VITALS: BP 178/87; PULSE 79; RESP 16; TEMP 98.9; O2SAT 99
--- NOTE | 2018-05-13 15:14 | C.PDOC ---
History Of Present Illness 62 year old female s/p bunionectomy 3 weeks ago presents to the ER for dressing changes. Patient has been getting her dressing changed at the podiatry clinic weekly but today she was unable to be seen there therefore she came to the ER. Denies new or worsening symptoms, fever, swelling, discharge, or pain. Time Seen by Provider: 05/13/18 14:00 Chief Complaint (Nursing): Wound Check History Per: Patient History/Exam Limitations: no limitations Onset/Duration Of Symptoms: Days Ago Current Symptoms Are (Timing): Still Present Location Of Injury: Left: Foot Quality Of Symptoms: Swollen Recent travel outside of the [place]: No Past Medical History Reviewed: Historical Data, Nursing Documentation, Vital Signs Vital Signs: Last Vital Signs Temp 98.9 F 05/13/18 13:54 Pulse 79 05/13/18 13:54 Resp 16 05/13/18 13:54 BP 178/87 H 05/13/18 13:54 Pulse Ox 99 05/13/18 13:54 - Medical History PMH: Arthritis (GENERALIZED), Colonic Polyps, COPD ("IT'S MORE LIKE AN ALLERGY-I ONLY USE IH ONCE IN AWHILE"), Gastritis, Gall Bladder Disease, HTN, Hypercholesterolemia, Hypothyroidism, Kidney Stones (NO TREATMENT NEEDED-THEY WERE SMALL), Peripheral Edema, Chronic Kidney Disease, TIA Other PMH: uterine cancer s/p mass removal Surgical History: Cholecystectomy, Endoscopy, Tonsillectomy Other Surgeries: Uterine mass removal - [facility] Procedures INSERTION OF INFUSION DEV INTO SUP VENA CAVA, PERC APPROACH (05/11/16) Family History: States: Unknown Family Hx - Social History Hx Alcohol Use: No Hx Substance Use: No - Immunization History Hx Tetanus Toxoid Vaccination: No Hx Influenza Vaccination: No Hx Pneumococcal Vaccination: Yes Review Of Systems Except As Marked, All Systems Reviewed And Found Negative. Constitutional: Negative for: Fever Skin: Positive for: Other (Surgical site) Neurological: Negative for: Weakness, Numbness Physical Exam - Physical Exam Appears: Non-toxic, No Acute Distress Skin: Warm, Dry Head: Atraumatic, Normacephalic Eye(s): bilateral: Normal Inspection, EOMI Oral Mucosa: Moist Neck: Normal ROM, Supple Chest: Symmetrical Respiratory: No Accessory Muscle Use Extremity: Tenderness (mild tenderness diffusely), No Calf Tenderness, Capillary Refill (<2 seconds), No Deformity, Swelling, Other (Left foot pin to distal 2nd metatarsal; two healing incision sites to 1st and 2nd metatarsal. No drainage or purulence.) Neurological/Psych: Oriented x3, Normal Speech, Normal Motor, Normal Sensation Gait: Steady ED Course And Treatment O2 Sat by Pulse Oximetry: 99 (Room air) Pulse Ox Interpretation: Normal Progress Note: Case discussed with podiatry resident, evaluated pt, changed dressing and discussed case with Dr. Junior. Agreed upon discharge and to follow up at podiatry clinic. Disposition - Disposition Referrals: [facility] at [facility] [Outside] Bonnie Junior DPM [Staff Provider] - Disposition: HOME/ ROUTINE Disposition Time: 15:34 Condition: STABLE Additional Instructions: Follow up with the podiatry clinic in 2 weeks as scheduled. Instructions: Wound Care (DC) Forms: [facility] (Lao) - Clinical Impression Clinical Impression: Visit for wound care - PA / WOOD MECHANIST / Resident Statement MD/DO has reviewed & agrees with the documentation as recorded. - Scribe Statement The provider has reviewed the documentation as recorded by the [employer] [place] All medical record entries made by the [employer] were at my direction and personally dictated by me. I have reviewed the chart and agree that the record accurately reflects my personal performance of the history, physical exam, medical decision making, and the department course for this patient. I have also personally directed, reviewed, and agree with the discharge instructions and disposition.
--- NOTE | 2018-05-13 15:20 | CP.PCM.CON ---
History of Present Illness - History of Present Illness History of Present Illness: Podiatry - Dr. Junior 62 year old female seen and evaluated in ED 3 weeks s/p left Nathan bunionectomy, Mt osteotomy, 2nd metatarsal osteotomy, 2nd HT correction, 2nd MPJ plantar plate repair. Patient resting comfortably, NAD. Patient states pain is slowly improving though still complains of persistent swelling to her LLE. Patient has kept her dressings clean/dry/intact. Patient states she is supposed to have her sutures removed today. Denies N/V/F/D/C/SOB/HIGGINS/CP. Offers no other complaints. PMHx: COPD, hypertension, hyperlipidemia, hypothyroidism, gastritis, uterine cancer s/p mass removal, osteoarthritis PSH: see above; Cholecystectomy, Endoscopy, Tonsillectomy, Uterine mass removal FH: Father - from CVA in 60s, Mother - hypertension SH: Former smoker, 35 year pack history. Denies alcohol and illicit drug use. Review of Systems - Review of Systems All systems: reviewed and no additional remarkable complaints except (as per HPI) Past Patient History - Infectious Disease Hx of Infectious Diseases: None - Past Medical History & Family History Past Medical History?: Yes - Past Social History Smoking Status: Former Smoker - CARDIAC Hx Hypercholesterolemia: Yes Hx Hypertension: Yes Hx Peripheral Edema: Yes - PULMONARY Hx Chronic Obstructive Pulmonary Disease (COPD): Yes ("IT'S MORE LIKE AN ALLERGY-I ONLY USE IH ONCE IN AWHILE") - NEUROLOGICAL Hx Transient Ischemic Attacks (TIA): Yes - HEENT Hx HEENT Problems: No - RENAL Hx Chronic Kidney Disease: Yes Hx Kidney Stones: Yes (NO TREATMENT NEEDED-THEY WERE SMALL) - ENDOCRINE/METABOLIC Hx Hypothyroidism: Yes - HEMATOLOGICAL/ONCOLOGICAL Hx Blood Disorders: Yes Hx Blood Transfusions: Yes Hx Cancer: Yes (Uterine) Hx Chemotherapy: No - INTEGUMENTARY Hx Dermatological Problems: No - MUSCULOSKELETAL/RHEUMATOLOGICAL Hx Arthritis: Yes (GENERALIZED) - GASTROINTESTINAL Hx Gall Bladder Disease: Yes Hx Gastritis: Yes - GENITOURINARY/GYNECOLOGICAL Hx Genitourinary Disorders: Yes Hx Uterine Cancer: Yes - PSYCHIATRIC Hx Substance Use: No - SURGICAL HISTORY Hx Cholecystectomy: Yes Hx Tonsillectomy: Yes - ANESTHESIA Hx Anesthesia: Yes Hx Anesthesia Reactions: No Hx Malignant Hyperthermia: No Meds Allergies/Adverse Reactions: Allergies Allergy/AdvReac Type Severity Reaction Status Date / Time tetracycline Allergy Severe SWELLING Verified 04/19/18 08:26 Physical Exam - Constitutional Appears: Well, Non-toxic, No Acute Distress - Extremities Exam Additional comments: Left lower extremity focused: Vasc: DP/PT palpable 2/4, TG warm to warm from proximal to distal , CFT <3 sec x5, non-pitting edema noted on the dorsum of forefoot Derm: Linear incisions noted to dorsum of 1st ray and 2nd ray appear well coapted with sutures intact and no wound dehiscence noted; no drainage noted; no purulence; no malodor; no erythema; no clinical suspicion of active infection. Incision noted to plantar aspect of 2nd digit noted to be well coapted with sutures intact and no wound dehiscence noted; no drainage; no purulence; no malodor; no erythema; no clinical suspicion of active infection. Pin site at distal 2nd digit intact with no drainage or clinical suspicion of active infection. Neuro: Light touch and protective sensation intact. Ortho: Minimal pain during AROM of the 1st and 2nd digit. - Neurological Exam Neurological exam: Alert, Oriented x3 - Psychiatric Exam Psychiatric exam: Normal Affect, Normal Mood Results - Vital Signs Recent Vital Signs: Last Vital Signs Temp 98.9 F 05/13/18 13:54 Pulse 79 05/13/18 13:54 Resp 16 05/13/18 13:54 BP 178/87 H 05/13/18 13:54 Pulse Ox 99 05/13/18 15:14 Assessment & Plan - Assessment and Plan (Free Text) Assessment: 62M PMHx COPD, hypertension, hyperlipidemia, hypothyroidism, gastritis, uterine cancer s/p mass removal, osteoarthritis 3 weeks s/p left Nathan bunionectomy, Mt osteotomy, 2nd metatarsal osteotomy, 2nd HT correction, 2nd MPJ plantar plate repair Plan: Patient seen and evaluated Discussed with attending, Dr. Junior Afebrile Sutures removed using an #11 blade w/o incident Incisions cleansed with saline and dressed with betadine, steristrips, and DSD Recommend RICE therapy OTC analgeics as needed Advised patient to take XR prior to next clinic visit Patient to follow up with Dr. Junior in the podiatry clinic in 2 weeks Stable for DC per podiatry Thank you for the consult
== END 2018-05-13 15:10 | disposition home or self-care (01) ==
LOC: C.ER 13:37
DX: Z48.89 Encounter for other specified surgical aftercare (principal)